=== PATIENT | female | born 1970 | race Caucasian/White ===

== ENCOUNTER 2016-12-04 06:59 | Inpatient (IN) | payer BC ==
[~2016-12-04 06:59] MED LIST: Lactated Ringers 1,000 ML IV SCH; Lidocaine 1%/Sod Bicarbonate in NS 8.4% 1 ML Syringe PRN; Sodium Chloride 0.9% 10 ML Syringe FLUSH PRN
[2016-12-04] MEDS ORDERED: HYDROmorphone 1 MG/ML Syringe ONE ×3 (07:39→11:11)
[2016-12-04] MEDS ORDERED: Dexamethasone 4 MG/ML 5 ML MDV ONE (07:39)
[2016-12-04] MEDS ORDERED: Midazolam 1 MG/ML 2 ML SDV ONE (07:39)
[2016-12-04] MEDS ORDERED: Propofol 200 MG/20 ML SDV ONE (07:39)
[2016-12-04] MEDS ORDERED: Lidocaine 1% 4 ML ONE (07:39)
[2016-12-04] MEDS ORDERED: Rocuronium 50 MG/5 ML Vial ONE (07:39)
[2016-12-04] MEDS ORDERED: Phenylephrine 1% 10 MG/ML SDV ONE (07:39)
[2016-12-04] MEDS ORDERED: ePHEDrine 50 MG/ML SDV ONE (07:39)
[2016-12-04] MEDS ORDERED: fentaNYL 250 MCG/5 ML SDV ONE (07:40)
[2016-12-04] MEDS ORDERED: ceFAZolin 1 GM Vial ONE ×3 (07:49→11:51)
--- NOTE | 2016-12-04 07:51 | PCM.PREANE ---
Preanesthetic Assessment - Procedure Proposed Procedure: Left Total Hip Arthroplasty - Anesthesia/Transfusion/Family Hx Anesthesia History: Prior Anesthesia Without Reaction Family History of Anesthesia Reaction: No Transfusion History: No Prior Transfusion(s) Intubation History: Unknown - Review of Systems General: No Symptoms Pulmonary: No Symptoms Cardiovascular: No Symptoms Gastrointestinal: No Symptoms Neurological: Numbness, Pre-Existing Deficit, Tingling, Difficulty Walking, Gait Disturbance, Other Other: Reports: Easy Bruising, Depression, Anxiety - Physical Assessment NPO Status Date: 12/03/16 NPO Status Time: 20:45 Pulse: 63 O2 Sat by Pulse Oximetry: 96 Respiratory Rate: 20 Blood Pressure: 144/92 Temperature: 37.3 C Height: 1.6 m Weight: 86.636 kg ASA Class: 2 Mental Status: Alert & Oriented x3 Airway Class: Mallampati = 1 Dentition: Reports: Dentures, Partial (Upper Dentures and Lower Partial) Thyro-Mental Finger Breadths: 3 Mouth Opening Finger Breadths: 3 ROM/Head Extension: Full Lungs: Clear to Auscultation, Normal Respiratory Effort Cardiovascular: Regular Rate, Regular Rhythm - Lab Values: Laboratory Last Values MRSA (PCR) Negative 11/24/16 11:18 - Allergies Allergies/Adverse Reactions: Allergies Allergy/AdvReac Type Severity Reaction Status Date / Time adhesive tape Allergy Rash Verified 12/01/16 13:12 metoclopramide [From Reglan] Allergy Cannot Verified 12/01/16 13:12 Remember - Acknowledgements Anesthesia Type Planned: General Anesthesia Pt an Appropriate Candidate for the Planned Anesthesia: Yes Alternatives and Risks of Anesthesia Discussed w Pt/Guardian: Yes Pt/Guardian Understands and Agrees with Anesthesia Plan: Yes PreAnesthesia Questionnaire HEENT History: Reports: Impaired Vision, Sinusitis Other HEENT History: lower partial, full upper denture, submandibular gland swelling, wears contacts Cardiovascular History: Reports: Angina, Heart Failure, Hypertension, Other ( See Below) Other Cardiovascular History: tachycardia Respiratory History: Reports: Sleep Apnea Gastrointestinal History: Reports: GERD, Hemorrhoids, Irritable Bowel Syndrome, Other (See Below) Other Gastrointestinal History: RUQ pain, bloody diarrhea, hematochezia Genitourinary History: Reports: Other (See Below) Other Genitourinary History: dyspareunia, pelvic pain, neurogenic bladder, 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 Other OB/BYN History: L breast mass, endometrosis Musculoskeletal History: Reports: Back Pain, Chronic, Osteoarthritis, Other ( See Below) Other Musculoskeletal History: joint pain, lumbar radiculopathy, myofasical muscle pain, monoarticular arthritis, carpal tunnel syndrome Neurological History: Reports: Other (See Below) Other Neuro History: cauda equina with surgical intervention in 2016, paresthesia, paraspinal hematoma requiring evacuation post cauda equina surgery , 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 Psychiatric History: Reports: Anxiety, Depression, Other (See Below) Other Psychiatric History: chronic pain syndrome Endocrine/Metabolic History: Reports: None Hematologic History: Reports: Other (See Below) Other Hematologic History: hematoma evacuation Immunologic History: Reports: Immunosuppression Oncologic (Cancer) History: Reports: Malignant Melanoma Dermatologic History: Reports: Other (See Below) Other Dermatologic History: melanoma, gluteal abcess, L axillary mass, pilonidal sinus cyst with abcess, dysplatic nevi - Infectious Disease History Infectious Disease History: Reports: Chicken Pox - Past Surgical History Head Surgeries/Procedures: Reports: None HEENT Surgical History: Reports: None Cardiovascular Surgical History: Reports: None GI Surgical History: Reports: None Female Surgical History: Reports: None, Hysterectomy, Oophorectomy Neurological Surgical History: Reports: Other (See Below) Other Neurological Surgeries/Procedures: see above Musculoskeletal Surgical History: Reports: Carpal Tunnel, Other (See Below) Other Musculoskeletal Surgeries/Procedures:: right total hip replacement, bilateral carpal tunnel release, laminectomy and bilateral foramenectomy L4L5 Dermatological Surgical History: Reports: Skin Biopsy - SUBSTANCE USE Smoking Status *Q: Former Smoker Tobacco Use Within Last Twelve Months: No Second Hand Smoke Exposure: No Recreational Drug Use History: No - HOME MEDS Home Medications: Home Meds Gabapentin [Neurontin] 1 cap PO DAILY 04/14/16 [History] Lisinopril/Hydrochlorothiazide [Zestoretic 10-12.5 mg Tablet] 1 tab PO DAILY 12/19 [History] LORazepam [LORazepam] 0.5 mg PO BID PRN 12/01/16 [History] Linaclotide [Linzess] 290 mcg PO DAILY 12/01/16 [History] Pantoprazole Sodium [Pantoprazole Sodium] 40 mg PO BID 12/01/16 [History] oxyCODONE HCl [oxyCODONE] 15 mg PO QID PRN 12/01/16 [History] - CURRENT (IN HOUSE) MEDS Current Meds: Current Medications Aspirin (Ecotrin) 325 mg PO BID [facility] Bisacodyl (Dulcolax) 5 mg PO DAILY PRN PRN Reason: Constipation Morphine Sulfate 8 mg/Epinephrine HCl 0.3 mg/Cefuroxime Sodium 750 mg/Ketorolac Tromethamine 30 mg/Sodium Chloride 27.9 ml 0 mg .XX ONETIME ONE Stop: 12/04/16 09:01 Docusate Sodium (Colace) 100 mg PO BID [facility] Famotidine (Pepcid) 20 mg PO Q12H [facility] Lactated Ringer's (Ringers, Lactated) 1,000 mls @ 125 mls/hr IV ASDIRECTED [facility]ICHI Stop: 12/04/16 23:00 Cefazolin Sodium/Dextrose 2 gm (/ Premix) 50 mls @ 100 mls/hr IV Q8H [facility] Stop: 12/04/16 23:44 Lidocaine/Sodium Bicarbonate (Buffered Lidocaine 1% In Ns 8.4%) 0.25 ml .XX ONETIME PRN PRN Reason: Prior to IV Start Stop: 12/04/16 18:00 Magnesium Hydroxide (Milk Of Magnesia) 30 ml PO BID PRN PRN Reason: Constipation Morphine Sulfate (Morphine) 2 mg IVPUSH Q2H PRN PRN Reason: Breakthrough Pain Multivitamins (Thera) 1 each PO WITHBREAKFAST [facility] Naloxone HCl (Narcan) 0.1 mg IVPUSH Q5M PRN PRN Reason: Oversedation Ondansetron HCl (Zofran) 4 mg IVPUSH Q6H PRN PRN Reason: Nausea/Vomiting Oxycodone/Acetaminophen (Percocet 325-5 Mg) 1 - 2 tab PO Q4H PRN PRN Reason: Pain Senna (Senna) 8.6 mg PO BID PRN PRN Reason: Constipation Sodium Chloride (Saline Flush) 10 ml FLUSH ASDIRECTED PRN PRN Reason: Keep Vein Open Stop: 12/04/16 18:00 Discontinued Medications Bupivacaine HCl (Marcaine 0.25%) Confirm Administered Dose 60 ml .ROUTE .STK- MED ONE Stop: 12/04/16 07:21 Dexamethasone (Dexamethasone) Confirm Administered Dose 20 mg .ROUTE .STK-MED ONE Stop: 12/04/16 07:40 Ephedrine Sulfate (Ephedrine Sulfate) Confirm Administered Dose 50 mg .ROUTE .STK-MED ONE Stop: 12/04/16 07:40 Fentanyl (Sublimaze) Confirm Administered Dose 250 mcg .ROUTE .STK-MED ONE Stop: 12/04/16 07:41 Hydromorphone HCl (Dilaudid) Confirm Administered Dose 2 mg .ROUTE .STK-MED ONE Stop: 12/04/16 07:40 Lidocaine HCl (Xylocaine-Mpf 1%) Confirm Administered Dose 4 mls @ as directed .ROUTE .STK-MED ONE Stop: 12/04/16 07:40 Midazolam HCl (Versed 1 Mg/Ml) Confirm Administered Dose 4 mg .ROUTE .STK-MED ONE Stop: 12/04/16 07:40 Phenylephrine HCl (Sonny-Synephrine) Confirm Administered Dose 10 mg .ROUTE .STK- MED ONE Stop: 12/04/16 07:40 Propofol (Diprivan 20 Ml) Confirm Administered Dose 600 mg .ROUTE .STK-MED ONE Stop: 12/04/16 07:40 Rocuronium Stover (Zemuron) Confirm Administered Dose 50 mg .ROUTE .STK-MED ONE Stop: 12/04/16 07:40 Vancomycin HCl (Vancomycin) Confirm Administered Dose 1 gm .ROUTE .STK-MED ONE Stop: 12/04/16 07:20
[2016-12-04] MEDS ORDERED: Sennosides 8.6 MG Tab PO PRN (09:00)
[2016-12-04] MEDS ORDERED: Magnesium Hydroxide 400 MG/5 ML Susp 30 ML Cup PO PRN (09:00)
[2016-12-04] MEDS ORDERED: Naloxone 0.4 MG/ML SDV IVPUSH PRN (09:00)
[2016-12-04] MEDS ORDERED: Morphine 8 MG, EPINEPHrine 0.3 MG, Cefuroxime 750 MG, Ketorolac 30 MG, Sodium Chloride ... ONE ×5 (09:00)
[2016-12-04] MEDS ORDERED: Morphine 2 MG/ML Syringe IVPUSH PRN (09:00)
[2016-12-04] MEDS ORDERED: Ondansetron 4 MG/2 ML SDV IVPUSH PRN (09:00)
[2016-12-04] MEDS ORDERED: Bisacodyl 5 MG Tab PO PRN (09:00)
[2016-12-04] MEDS ORDERED: Ketamine 500 mg/10 ML MDV ONE (09:26)
[2016-12-04] MEDS: Bupivacaine 0.25% 30 ML SDV ONE ×2 (09:30→10:20)
[2016-12-04] MEDS: Iodine/Sodium Iodide 2% Tincture 30 ML Bottle ONE ×2 (09:31→10:16)
[2016-12-04] MEDS: Vancomycin 1 GM SDV ONE ×2 (09:33→10:22)
[2016-12-04] MEDS ORDERED: Ketorolac 30 MG/ML SDV ONE (09:49)
[2016-12-04] MEDS ORDERED: diphenhydrAMINE 50 MG/ML SDV ONE (09:49)
[2016-12-04] MEDS ORDERED: Lactated Ringers 1,000 ML ONE (10:11)
[2016-12-04] MEDS ORDERED: HYDROmorphone 0.5 MG/0.5 ML Syringe IVPUSH PRN (10:13)
[2016-12-04] MEDS ORDERED: Midazolam 1 MG/ML 2 ML SDV IVPUSH PRN (10:13)
[2016-12-04] MEDS ORDERED: Hetastarch in NS 500 ML ONE (10:16)
--- NOTE | 2016-12-04 11:08 | PCM.POSTAN ---
POST ANESTHESIA ASSESSMENT - MENTAL STATUS Mental Status: Alert, Oriented - VITAL SIGNS Pulse Rate: 81 SaO2: 100 Resp Rate: 13 Blood Pressure: 121/87 Temperature: 36.7 C - RESPIRATORY Respiratory Status: Respiratory Rate WNL, Airway Patent, O2 Saturation Stable, Supplemental Oxygen - CARDIOVASCULAR CV Status: Pulse Rate WNL, Blood Pressure Stable - GASTROINTESTINAL GI Status: No Symptoms - PAIN Pain Score: 5 (Chronic Pain with Chronic Narcotic Use. ) - POST OP HYDRATION Hydration Status: Adequate & Stable
[2016-12-04] MEDS ORDERED: fentaNYL 100 MCG/2 ML SDV ONE (11:09)
[2016-12-04] MEDS ORDERED: Meperidine PF 50 MG/ML Syringe ONE (11:14)
[2016-12-04] MEDS ORDERED: Meperidine PF 50 MG/ML Syringe IVPUSH PRN (11:18)
[2016-12-04] MEDS: fentaNYL 100 MCG/2 ML SDV IVPUSH PRN ×2 (11:23→11:37)
[2016-12-04] MEDS ORDERED: Haloperidol Lactate 5 MG/ML SDV IVPUSH ONE (12:00)
--- NOTE | 2016-12-04 12:48 | CR ---
Pelvis and left hip: AP view of the pelvis was obtained as well as lateral view of the left hip. Comparison: Previous pelvis and right hip study of 04/17/16. Bilateral hip prosthesis are seen. Left hip prosthesis is an interval change from prior study. Right hip prosthesis appears stable. Previous lumbar spine surgery is noted which is stable. Bony structures are otherwise unremarkable. Nothing acute is seen. Impression: 1. Recently placed left hip prosthesis. 2. Stable appearing surgery within the lumbar spine as well as stable right hip prosthesis. 3. No acute bony abnormality is identified. Diagnostic code #2
[2016-12-04] MEDS: Acetaminophen/oxyCODONE 325-5 MG Tab PO PRN ×2 (13:57→17:58)
--- NOTE | 2016-12-04 14:23 | PCM.CONS ---
H&P History of Present Illness - General Date of Service: 12/04/16 Admit Problem/Dx: Admission Diagnosis/Problem Admission Diagnosis/Problem Osteoarthritis of hip Source of Information: Patient, Old Records, Provider, RN History Limitations: Reports: No Limitations - History of Present Illness Initial Comments - Free Text/Narative: Shanti is a 46 yo female s/p left CECILIO with Dr. Angel this morning. Hospitalist service is consulted for postoperative medical management. PMH includes impaired vision, angina, heart failure, HTN, HOANG, GERD, IBS, neurogenic bladder , dysfunctional uterine bleeding, chronic back pain, osteoarthritis, lumbar radiculopathy, myofasical muscle pain, monoarticular arthritis, cauda equina with surgical intervention in 2016, paraspinal hematoma requiring evacuation post cauda equina surgery, permanent nerve damage to LF, anxiety, depression, chronic pain, immunosupression, malignant melanoma, prior right total hip replacement, laminectomy and bilateral foramencetomy at L4L5. She is a former smoker. I found her in tears today. She reports she was just trying to stand with physical therapy and the pain became too much. She has chronic back pain and rates that at 5-6/10. This has improved since she has laid down on a heating pad. She reports worsening back pain prior to surgery and states her neurologist wants to see her shorty for follow-up. Her left hip pain is 7-8/10. She reports her pain is under fair control now that she has been able to sit and rest. No nausea. No SOB, CP, palpiataitons. Left Hip Pain Score (Numeric/FACES): 8 Lumbar Spine Pain Score (Numeric/FACES): 6 (Improving with heat pad ) - Related Data Allergies/Adverse Reactions: Allergies Allergy/AdvReac Type Severity Reaction Status Date / Time adhesive tape Allergy Rash Verified 12/04/16 12:42 metoclopramide [From Reglan] Allergy Cannot Verified 12/04/16 12:42 Remember Home Medications: Home Meds Gabapentin [Neurontin] 1 cap PO TID 04/14/16 [History] LORazepam [LORazepam] 0.5 mg PO BID PRN 12/01/16 [History] Linaclotide [Linzess] 290 mcg PO DAILY 12/01/16 [History] Pantoprazole Sodium [Pantoprazole Sodium] 40 mg PO BID 12/01/16 [History] oxyCODONE HCl [oxyCODONE] 15 mg PO QID PRN 12/01/16 [History] Cholecalciferol (Vitamin D3) [Vitamin D] 5,000 units PO DAILY 12/04/16 [History] Lisinopril/Hydrochlorothiazide [Lisinopril-Hctz 20-25 mg Tab] 1 tab PO DAILY 04/21 [History] Past Medical History HEENT History: Reports: Impaired Vision, Sinusitis Other HEENT History: lower partial, full upper denture, submandibular gland swelling, wears contacts Cardiovascular History: Reports: Angina, Heart Failure, Hypertension, Other ( See Below) Other Cardiovascular History: tachycardia Respiratory History: Reports: Sleep Apnea Gastrointestinal History: Reports: GERD, Hemorrhoids, Irritable Bowel Syndrome, Other (See Below) Other Gastrointestinal History: RUQ pain, bloody diarrhea, hematochezia Genitourinary History: Reports: Other (See Below) Other Genitourinary History: dyspareunia, pelvic pain, neurogenic bladder, hematuria [employer]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 Other OB/BYN History: L breast mass, endometrosis Musculoskeletal History: Reports: Back Pain, Chronic, Osteoarthritis, Other ( See Below) Other Musculoskeletal History: joint pain, lumbar radiculopathy, myofasical muscle pain, monoarticular arthritis, carpal tunnel syndrome Neurological History: Reports: Other (See Below) Other Neuro History: cauda equina with surgical intervention in 2016, paresthesia, paraspinal hematoma requiring evacuation post cauda equina surgery , 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 Psychiatric History: Reports: Anxiety, Depression, Other (See Below) Other Psychiatric History: chronic pain syndrome Endocrine/Metabolic History: Reports: None Hematologic History: Reports: Other (See Below) Other Hematologic History: hematoma evacuation Immunologic History: Reports: Immunosuppression Oncologic (Cancer) History: Reports: Malignant Melanoma Dermatologic History: Reports: Other (See Below) Other Dermatologic History: melanoma, gluteal abcess, L axillary mass, pilonidal sinus cyst with abcess, dysplatic nevi - Infectious Disease History Infectious Disease History: Reports: Chicken Pox - Past Surgical History Head Surgeries/Procedures: Reports: None HEENT Surgical History: Reports: None Cardiovascular Surgical History: Reports: None GI Surgical History: Reports: None Female Surgical History: Reports: None, Hysterectomy, Oophorectomy Neurological Surgical History: Reports: Other (See Below) Other Neurological Surgeries/Procedures: see above Musculoskeletal Surgical History: Reports: Carpal Tunnel, Other (See Below) Other Musculoskeletal Surgeries/Procedures:: right total hip replacement, bilateral carpal tunnel release, laminectomy and bilateral foramenectomy L4L5 Dermatological Surgical History: Reports: Skin Biopsy Social & Family History - Family History Cardiac: Reports: Heart Failure, [place] Respiratory: Reports: Other (See Below) Other Respiratory Family Hisory: lung cancer : Reports: Other (See Below) Other Family History: kidney failure OBGYN: Reports: Endometriosis, Oncologic: Reports: Lung, Skin - Tobacco Use Smoking Status *Q: Former Smoker Years of Tobacco use: 30 Packs/Tins Daily: 1 Used Tobacco, but Quit: Yes Month Tobacco Last Used: 05/2015 Second Hand Smoke Exposure: No - Caffeine Use Caffeine Use: Reports: Coffee - Recreational Drug Use Recreational Drug Use: No Drug Use in Last 12 Months: No H&P Review of Systems - Review of Systems: Review Of Systems: See Below General: Reports: No Symptoms HEENT: Reports: No Symptoms Pulmonary: Reports: No Symptoms Cardiovascular: Reports: No Symptoms Gastrointestinal: Reports: No Symptoms Genitourinary: Reports: No Symptoms Musculoskeletal: Reports: Back Pain (lumbar spine), Joint Pain (Left hip) Skin: Reports: No Symptoms Psychiatric: Reports: Depression. Denies: Confusion, Agitation Neurological: Reports: No Symptoms Hematologic/Lymphatic: Reports: No Symptoms Immunologic: Reports: No Symptoms Exam - Exam Exam: See Below - Vital Signs Vital Signs: Last Vital Signs Temp 98.2 F 12/04/16 11:59 Pulse 81 12/04/16 11:08 Resp 15 12/04/16 12:30 BP 133/91 H 12/04/16 12:30 Pulse Ox 98 12/04/16 12:58 Weight: 191 lb - Exam Quality Assessment: Supplemental Oxygen, Urinary Catheter, DVT Prophylaxis General: Alert, Oriented, Cooperative HEENT: Conjunctiva Clear, EOMI, Mucosa Moist & [place], Nares Patent, Normal Nasal Septum, Posterior Pharynx Clear, PERRLA Neck: Supple, Trachea Midline. No: JVD Lungs: Clear to Auscultation, Normal Respiratory Effort Cardiovascular: Regular Rate, Regular Rhythm GI/Abdominal Exam: Normal Bowel Sounds, Soft, Non-Tender, No Organomegaly, No Distention, No Abnormal Bruit, No Mass (Female) Exam: Deferred Rectal (Female) Exam: Deferred Back Exam: Normal Inspection, Decreased Range of Motion, Paraspinal Tenderness, Vertebral Tenderness Extremities: Normal Inspection, No Pedal Edema, Normal Capillary Refill, Other ( Left leg bandaged ) Peripheral Pulses: 2+: Radial (L), Radial (R), Posterior Tibial (L), Posterior Tibial (R), Dorsalis Pedis (L), Dorsalis Pedis (R) Skin: Warm, Dry, Intact, Other (Dressing present on left hip. It is dry and intact ) Neurological: Cranial Nerves Intact (Grossly) Neuro Extensive - Mental Status: Alert, Oriented x3, Normal Mood/Affect, Normal Cognition, Memory Intact Neuro Extensive - Motor, Sensory, Reflexes: CN II-XII Intact (Grossly ) Psychiatric: Alert, Depressed. No: Labile Mood, Anxious, Agitated - Patient Data Lab Results Last 24 hrs: Laboratory Results - last 24 hr 12/04/16 12/04/16 Range/Units 07:45 07:45 Hemoglobin A1c 5.30 (4.50-6.20) % Blood Type A POSITIVE Gel Antibody Screen Negative Consult PN Assessment/Plan POD#: 0 Procedures: Procedures CARPAL TUNNEL SURGERY (08/05/15) CT LUMBAR SPINE W/O DYE (08/03/15) MR-STAPH DNA AMP PROBE (08/03/15) THER INJECTION CARP TUNNEL (07/09/15) X-RAY EXAM L-2 SPINE 4/>VWS (08/03/15) X-RAY EXAM OF PELVIS (08/03/15) (1) Status post total hip replacement, left SNOMED Code(s): 350542351037 Code(s): Z96.642 - PRESENCE OF LEFT ARTIFICIAL HIP JOINT Priority: High Current Visit: Yes (2) Osteoarthritis SNOMED Code(s): 047279073 Code(s): M19.90 - UNSPECIFIED OSTEOARTHRITIS, UNSPECIFIED SITE Priority: High Current Visit: No Qualifiers: Osteoarthritis location: hip Osteoarthritis type: primary Laterality: left Qualified Code(s): M16.12 - Unilateral primary osteoarthritis, left hip (3) Chronic low back pain SNOMED Code(s): 832232905 Code(s): M54.5 - LOW BACK PAIN; G89.29 - OTHER CHRONIC PAIN Priority: Medium Current Visit: Yes Qualifiers: Back pain laterality: midline Sciatica laterality: sciatica laterality unspecified Problem List Initiated/Reviewed/Updated: Yes Plan: Assessment: Acute: Post-Operative Care State - Stable - Continue to monitor for hemodynamic instability S/p Left Total Hip Arthroplasty - Stable - DVT and Pain Management as per primary team Hx/o Chronic back pain - Pain Management as per primary team - She has follow-up appointment with her neurologist in upcoming days Chronic: Impaired vision Angina Heart failure HTN HOANG GERD IBS Neurogneic bladder Chronic back pain Osteoarthritis Lumbar radiculopathy Myofasical muscle pain Monoarticular arthritis Cauda equina with surgical intervention in 2016 Paresthesia Paraspinal hematoma requiring evacuation post cauda equina surgery Permanent nerve damage to L4 Anxiety Depression Chronic pain syndrome Immunosupresion Malignant melanoma Obesity with BMI of 33.8 Plan: She is appears clinically stable at this time Routine AM labs Continue home meds PT/OT consult IS q2 awake Thank you for the opportunity to participate in the management of this patient. Requesting Provider: Dr. Angel Date Consult Requested: 12/04/16 Reason for Consult: Post-operative care Patient History Reviewed: Yes Admission H&P Reviewed: Yes Consult Result/Summary:: She is clinically stable
[2016-12-04] MEDS: ceFAZolin 2 GM in Premix Bag 1 BAG IV SCH (17:11)
[2016-12-04] MEDS ORDERED: FLU Vacc QS 2017-18 (6mos UP)/PF 60 MCG/0.5 ML Syringe IM ONE (18:00)
[2016-12-04] MEDS: Gabapentin 300 MG Cap PO SCH (21:06)
[2016-12-04] MEDS: Famotidine 20 MG Tab PO SCH (21:06)
[2016-12-04] MEDS: Docusate Sodium 100 MG Cap PO SCH (21:06)
[2016-12-05] MEDS: ceFAZolin 2 GM in Premix Bag 1 BAG IV SCH ×2 (01:19→08:32)
[2016-12-05] MEDS: Acetaminophen/oxyCODONE 325-5 MG Tab PO PRN ×3 (01:53→10:29)
[2016-12-05] MEDS ORDERED: Multivitamins,Therapeutic Tab PO SCH (07:00)
[2016-12-05] MEDS ORDERED: LORazepam 0.5 MG Tab PO PRN (08:09)
--- NOTE | 2016-12-05 08:18 | PCM.CONSN ---
- General Info Date of Service: 12/05/16 Admission Dx/Problem (Free Text): Admission Diagnosis/Problem Admission Diagnosis/Problem Osteoarthritis of hip POD #[address] Angel Pain somewhat controlled- improved from yesterday, no n/v. Working with PT/OT- doing well; continues to have numbness to left foot but is improving and has sensation there this morning. Plans for DC home today. Functional Status: Reports: Pain Controlled, Tolerating Diet, Ambulating, Urinating, Incentive Spirometry. Denies: New Symptoms - Review of Systems General: Reports: No Symptoms HEENT: Reports: No Symptoms Pulmonary: Reports: No Symptoms Cardiovascular: Reports: No Symptoms Gastrointestinal: Reports: No Symptoms Genitourinary: Reports: No Symptoms Musculoskeletal: Reports: Back Pain (chronic), Leg Pain Skin: Reports: No Symptoms Neurological: Reports: Numbness (lt lower leg/foot), Paresthesia (left lower leg /foot) Psychiatric: Reports: No Symptoms - Patient Data Vitals - Most Recent: Last Vital Signs Temp 98.1 F 12/05/16 02:41 Pulse 66 12/05/16 02:41 Resp 20 12/05/16 02:41 BP 118/74 12/05/16 02:41 Pulse Ox 97 12/05/16 02:41 Weight - Most Recent: 195 lb I&O - Last 24 Hours: Intake & Output 12/04/16 12/05/16 12/05/16 22:59 06:59 14:59 Intake Total 200 650 Output Total 400 700 Balance -200 -50 Lab Results Last 24 Hours: Laboratory Results - last 24 hr 12/04/16 12/04/16 12/05/16 Range/Units 07:45 07:45 05:45 WBC 10.38 H (3.98-10.04) K/mm3 RBC 3.38 L (3.98-5.22) M/mm3 Hgb 10.8 L (11.2-15.7) gm/L Hct 32.8 L (34.1-44.9) % MCV 97.0 H (79.4-94.8) fl MCH 32.0 (25.6-32.2) pg MCHC 32.9 (32.2-35.5) g/dl RDW Std Deviation 44.1 (36.4-46.3) fL Plt Count 179 L (182-369) K/mm3 MPV 10.7 (9.4-12.3) fl Neut % (Auto) 70.5 (34.0-71.1) % Lymph % (Auto) 17.6 L (19.3-51.7) % [place] % (Auto) 11.3 (4.7-12.5) % Eos % (Auto) 0.1 L (0.7-5.8) Baso % (Auto) 0.2 (0.1-1.2) % Neut # (Auto) 7.32 H (1.56-6.13) K/mm3 Lymph # (Auto) 1.83 (1.18-3.74) K/mm3 [place] # (Auto) 1.17 H (0.24-0.36) K/mm3 Eos # (Auto) 0.01 L (0.04-0.36) K/mm3 Baso # (Auto) 0.02 (0.01-0.08) K/mm3 Sodium (136-145) mEq/L Potassium (3.5-5.1) mEq/L Chloride (98-107) mEq/L Carbon Dioxide (21-32) mEq/L Anion Gap (5-15) BUN (7-18) mg/dL Creatinine (0.55-1.02) mg/dL Est Cr Clr Drug Dosing mL/min Estimated GFR (MDRD) (>60) mL/min BUN/Creatinine Ratio (14-18) Glucose (74-106) mg/dL Hemoglobin A1c 5.30 (4.50-6.20) % Calcium (8.5-10.1) mg/dL Total Bilirubin (0.2-1.0) mg/dL AST (15-37) U/L ALT (14-59) U/L Alkaline Phosphatase (46-116) U/L Total Protein (6.4-8.2) g/dl Albumin (3.4-5.0) g/dl Globulin gm/dL Albumin/Globulin Ratio (1-2) Blood Type A POSITIVE Gel Antibody Screen Negative 12/05/16 Range/Units 05:45 WBC (3.98-10.04) K/mm3 RBC (3.98-5.22) M/mm3 Hgb (11.2-15.7) gm/L Hct (34.1-44.9) % MCV (79.4-94.8) fl MCH (25.6-32.2) pg MCHC (32.2-35.5) g/dl RDW Std Deviation (36.4-46.3) fL Plt Count (182-369) K/mm3 MPV (9.4-12.3) fl Neut % (Auto) (34.0-71.1) % Lymph % (Auto) (19.3-51.7) % [place] % (Auto) (4.7-12.5) % Eos % (Auto) (0.7-5.8) Baso % (Auto) (0.1-1.2) % Neut # (Auto) (1.56-6.13) K/mm3 Lymph # (Auto) (1.18-3.74) K/mm3 [place] # (Auto) (0.24-0.36) K/mm3 Eos # (Auto) (0.04-0.36) K/mm3 Baso # (Auto) (0.01-0.08) K/mm3 Sodium 139 (136-145) mEq/L Potassium 3.6 (3.5-5.1) mEq/L Chloride 105 (98-107) mEq/L Carbon Dioxide 25 (21-32) mEq/L Anion Gap 12.6 (5-15) BUN 13 (7-18) mg/dL Creatinine 0.6 (0.55-1.02) mg/dL Est Cr Clr Drug Dosing 96.92 mL/min Estimated GFR (MDRD) > 60 (>60) mL/min BUN/Creatinine Ratio 21.7 H (14-18) Glucose 85 (74-106) mg/dL Hemoglobin A1c (4.50-6.20) % Calcium 8.5 (8.5-10.1) mg/dL Total Bilirubin 0.4 (0.2-1.0) mg/dL AST 38 H (15-37) U/L ALT 22 (14-59) U/L Alkaline Phosphatase 41 L (46-116) U/L Total Protein 6.0 L (6.4-8.2) g/dl Albumin 2.9 L (3.4-5.0) g/dl Globulin 3.1 gm/dL Albumin/Globulin Ratio 0.9 L (1-2) Blood Type Gel Antibody Screen Med Orders - Current: Current Medications Aspirin (Ecotrin) 325 mg PO BID [facility] Bisacodyl (Dulcolax) 5 mg PO DAILY PRN PRN Reason: Constipation Docusate Sodium (Colace) 100 mg PO BID [facility] Last Admin: 12/04/16 21:06 Dose: 100 mg Famotidine (Pepcid) 20 mg PO BID [facility] Last Admin: 12/04/16 21:06 Dose: 20 mg Gabapentin (Neurontin) 300 mg PO TID [facility] Last Admin: 12/04/16 21:06 Dose: 300 mg Hydrochlorothiazide (Hydrochlorothiazide) 25 mg PO DAILY [facility] Cefazolin Sodium/Dextrose 2 gm (/ Premix) 50 mls @ 100 mls/hr IV Q8H [facility] Stop: 12/05/16 09:29 Last Admin: 12/05/16 01:19 Dose: 100 mls/hr Lisinopril (Prinivil) 20 mg PO DAILY [facility] Lorazepam (Ativan) 0.5 mg PO BID PRN PRN Reason: Anxiety Magnesium Hydroxide (Milk Of Magnesia) 30 ml PO BID PRN PRN Reason: Constipation Morphine Sulfate (Morphine) 2 mg IVPUSH Q2H PRN PRN Reason: Breakthrough Pain Last Admin: 12/04/16 21:10 Dose: 2 mg Multivitamins (Thera) 1 each PO WITHBREAKFAST [facility] Last Admin: 12/05/16 06:33 Dose: 1 each Naloxone HCl (Narcan) 0.1 mg IVPUSH Q5M PRN PRN Reason: Oversedation Non-Formulary Medication (Cholecalciferol (Vitamin D3) [Vitamin D]) 5,000 units PO DAILY [facility] Ondansetron HCl (Zofran) 4 mg IVPUSH Q6H PRN PRN Reason: Nausea/Vomiting Oxycodone/Acetaminophen (Percocet 325-5 Mg) 1 - 2 tab PO Q4H PRN PRN Reason: Pain Last Admin: 12/05/16 06:33 Dose: 2 tab Linaclotide [Linzess (] 290 Mcg) 0 each PO DAILY [facility] Senna (Senna) 8.6 mg PO BID PRN PRN Reason: Constipation Discontinued Medications Bupivacaine HCl (Marcaine 0.25%) Confirm Administered Dose 60 ml .ROUTE .STK- MED ONE Stop: 12/04/16 07:21 Last Admin: 12/04/16 10:20 Dose: 30 ml Cefazolin Sodium (Ancef) Confirm Administered Dose 1 gm .ROUTE .STK-MED ONE Stop: 12/04/16 07:50 Cefazolin Sodium (Ancef) Confirm Administered Dose 1 gm .ROUTE .STK-MED ONE Stop: 12/04/16 08:08 Cefazolin Sodium (Ancef) Confirm Administered Dose 2 gm .ROUTE .STK-MED ONE Stop: 12/04/16 11:52 Morphine Sulfate 8 mg/Epinephrine HCl 0.3 mg/Cefuroxime Sodium 750 mg/Ketorolac Tromethamine 30 mg/Sodium Chloride 27.9 ml 0 mg .XX ONETIME ONE Stop: 12/04/16 09:01 Last Admin: 12/04/16 14:10 Dose: Not Given Dexamethasone (Dexamethasone) Confirm Administered Dose 20 mg .ROUTE .STK-MED ONE Stop: 12/04/16 07:40 Diphenhydramine HCl (Benadryl) Confirm Administered Dose 50 mg .ROUTE .STK-MED ONE Stop: 12/04/16 09:50 Ephedrine Sulfate (Ephedrine Sulfate) Confirm Administered Dose 50 mg .ROUTE .STK-MED ONE Stop: 12/04/16 07:40 Fentanyl (Sublimaze) Confirm Administered Dose 250 mcg .ROUTE .STK-MED ONE Stop: 12/04/16 07:41 Fentanyl (Sublimaze) 100 mcg IVPUSH Q5M PRN PRN Reason: Pain Stop: 12/04/16 12:00 Last Admin: 12/04/16 11:37 Dose: 100 mcg Fentanyl (Sublimaze) Confirm Administered Dose 100 mcg .ROUTE .STK-MED ONE Stop: 12/04/16 11:10 Haloperidol Lactate (Haldol) 1 mg IVPUSH ONETIME ONE Stop: 12/04/16 12:01 Last Admin: 12/04/16 14:10 Dose: Not Given Hydromorphone HCl (Dilaudid) Confirm Administered Dose 2 mg .ROUTE .STK-MED ONE Stop: 12/04/16 07:40 Hydromorphone HCl (Dilaudid) 0.5 mg IVPUSH Q15M PRN PRN Reason: severe pain Stop: 12/04/16 12:00 Last Admin: 12/04/16 11:50 Dose: 0.5 mg Hydromorphone HCl (Dilaudid) Confirm Administered Dose 1 mg .ROUTE .STK-MED ONE Stop: 12/04/16 10:56 Hydromorphone HCl (Dilaudid) Confirm Administered Dose 1 mg .ROUTE .STK-MED ONE Stop: 12/04/16 11:12 Lactated Ringer's (Ringers, Lactated) 1,000 mls @ 125 mls/hr IV ASDIRECTED [facility] Stop: 12/04/16 23:00 Last Admin: 12/04/16 07:35 Dose: 125 mls/hr Lidocaine HCl (Xylocaine-Mpf 1%) Confirm Administered Dose 4 mls @ as directed .ROUTE .[facility] ONE Stop: 12/04/16 07:40 Acetaminophen (Ofirmev) 100 mls @ 400 mls/hr IV NOW ONE Stop: 12/04/16 08:28 Last Admin: 12/04/16 08:41 Dose: 400 mls/hr Lactated Ringer's (Ringers, Lactated) Confirm Administered Dose 1,000 mls @ as directed .ROUTE .ST-MED ONE Stop: 12/04/16 10:12 Hetastarch/Sodium Chloride (Hetastarch 6% In Normal Saline) Confirm Administered Dose 500 mls @ as directed .ROUTE .ST-MED ONE Stop: 12/04/16 10:17 Iodine (Iodine 2% Mild Tincture) Confirm Administered Dose 30 ml .ROUTE .ST- MED ONE Stop: 12/04/16 07:51 Last Admin: 12/04/16 10:16 Dose: 18 ml Ketamine HCl (Ketalar) Confirm Administered Dose 500 mg .ROUTE .STK-MED ONE Stop: 12/04/16 09:27 Ketorolac Tromethamine (Toradol) Confirm Administered Dose 30 mg .ROUTE .STK- MED ONE Stop: 12/04/16 09:50 Lidocaine/Sodium Bicarbonate (Buffered Lidocaine 1% In Ns 8.4%) 0.25 ml .XX ONETIME PRN PRN Reason: Prior to IV Start Stop: 12/04/16 18:00 Last Admin: 12/04/16 07:34 Dose: 0.25 ml Meperidine HCl (Demerol) 25 mg IVPUSH ONETIME PRN PRN Reason: Shivering Stop: 12/04/16 11:19 Last Admin: 12/04/16 11:20 Dose: 25 mg Meperidine HCl (Demerol) Confirm Administered Dose 50 mg .ROUTE .STK-MED ONE Stop: 12/04/16 11:15 Last Admin: 12/04/16 14:10 Dose: Not Given Midazolam HCl (Versed 1 Mg/Ml) Confirm Administered Dose 4 mg .ROUTE .STK-MED ONE Stop: 12/04/16 07:40 Midazolam HCl (Versed 1 Mg/Ml) 2 mg IVPUSH ONETIME PRN PRN Reason: Sedation Stop: 12/04/16 12:00 Phenylephrine HCl (Sonny-Synephrine) Confirm Administered Dose 10 mg .ROUTE .STK- MED ONE Stop: 12/04/16 07:40 Propofol (Diprivan 20 Ml) Confirm Administered Dose 600 mg .ROUTE .STK-MED ONE Stop: 12/04/16 07:40 Rocuronium [place] (Zemuron) Confirm Administered Dose 50 mg .ROUTE .STK-MED ONE Stop: 12/04/16 07:40 Sodium Chloride (Saline Flush) 10 ml FLUSH ASDIRECTED PRN PRN Reason: Keep Vein Open Stop: 12/04/16 18:00 Tranexamic Acid (Cyklokapron) Confirm Administered Dose 1,000 mg .ROUTE .STK- MED ONE Stop: 12/04/16 07:45 Last Admin: 12/04/16 10:23 Dose: 1,000 mg Vancomycin HCl (Vancomycin) Confirm Administered Dose 1 gm .ROUTE .STK-MED ONE Stop: 12/04/16 07:20 Last Admin: 12/04/16 10:22 Dose: 1 gm - Exam Quality Assessment: DVT Prophylaxis General: Alert, Oriented, Cooperative, No Acute Distress HEENT: Pupils Equal, Pupils Reactive, EOMI, Mucous Membr. Moist/[place] Neck: Supple Lungs: Clear to Auscultation, Normal Respiratory Effort Cardiovascular: Regular Rate, Regular Rhythm GI/Abdominal Exam: Normal Bowel Sounds, Soft, Non-Tender (Female) Exam: Deferred Extremities: Other (Teds/SCD's) Peripheral Pulses: 2+: Dorsalis Pedis (L), Dorsalis Pedis (R) Skin: Warm, Dry Wound/Incisions: Dressing Dry and Intact Neurological: No New Focal Deficit Psy/Mental Status: Alert, Normal Affect, Normal Mood Consult PN Assessment/Plan POD#: 1 Procedures: Procedures CARPAL TUNNEL SURGERY (08/05/15) CT LUMBAR SPINE W/O DYE (08/03/15) MR-STAPH DNA AMP PROBE (08/03/15) THER INJECTION CARP TUNNEL (07/09/15) X-RAY EXAM L-2 SPINE 4/>VWS (08/03/15) X-RAY EXAM OF PELVIS (08/03/15) (1) Status post total hip replacement, left SNOMED Code(s): 452429730204 Code(s): Z96.642 - PRESENCE OF LEFT ARTIFICIAL HIP JOINT Priority: High Current Visit: Yes (2) Osteoarthritis SNOMED Code(s): 659669590 Code(s): M19.90 - UNSPECIFIED OSTEOARTHRITIS, UNSPECIFIED SITE Priority: High Current Visit: Yes Qualifiers: Osteoarthritis location: hip Osteoarthritis type: primary Laterality: left Qualified Code(s): M16.12 - Unilateral primary osteoarthritis, left hip (3) Chronic low back pain SNOMED Code(s): 596280724 Code(s): M54.5 - LOW BACK PAIN; G89.29 - OTHER CHRONIC PAIN Priority: Medium Current Visit: Yes Qualifiers: Back pain laterality: midline Sciatica laterality: sciatica laterality unspecified (4) Paresthesia SNOMED Code(s): 39767668 Code(s): R20.2 - PARESTHESIA OF SKIN Priority: Medium Current Visit: Yes Problem List Initiated/Reviewed/Updated: Yes My Orders Last 24 Hours: My Active Orders 12/05/16 08:09 LORazepam [Ativan] 0.5 mg PO BID PRN 12/05/16 09:00 Cholecalciferol (Vitamin D3) [Vitamin D] 5,000 units PO DAILY Plan: I/P: S/P Lt CECILIO- POD #1, Dr. 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 Immunosupresion Malignant melanoma Obesity with BMI of 33.8 Other: GI prophylax CM/SW for assist with DC planning -Medically stable for DC today; labs and VSS. Pending therapies recommendations. Patient is Full Code status.
[2016-12-05] MEDS: Famotidine 20 MG Tab PO SCH (08:31)
[2016-12-05] MEDS: Gabapentin 300 MG Cap PO SCH ×2 (08:31→15:41)
[2016-12-05] MEDS: Docusate Sodium 100 MG Cap PO SCH (08:31)
[2016-12-05] MEDS ORDERED: Lisinopril 20 MG Tab PO SCH (09:00)
[2016-12-05] MEDS ORDERED: Cholecalciferol (Vitamin D3) 1,000 Unit Tab PO SCH (09:00)
[2016-12-05] MEDS ORDERED: Aspirin 325 MG Tab.EC PO SCH (09:00)
[2016-12-05] MEDS ORDERED: Hydrochlorothiazide 25 MG Tab PO SCH (09:00)
--- NOTE | 2016-12-05 09:45 | PCM48HPAN ---
Post Anesthesia Note - EVALUATION WITHIN 48HRS OF ANESTHETIC Vital Signs in Normal Range: Yes Patient Participated in Evaluation: Yes Respiratory Function Stable: Yes Airway Patent: Yes Cardiovascular Function Stable: Yes Hydration Status Stable: Yes Pain Control Satisfactory: Yes Nausea and Vomiting Control Satisfactory: Yes Mental Status Recovered: Yes
[2016-12-05 13:56] VITALS: BP 116/80
--- NOTE | 2016-12-06 07:47 | PCM.SURGPN ---
- General Info Date of Service: 12/05/16 POD#: 1 Functional Status: Reports: Pain Controlled, Tolerating Diet, Ambulating, Urinating, Incentive Spirometry - Review of Systems General: Denies: Fever, Chills Musculoskeletal: Reports: Other (The pt reports left ankle weakness. She states she feels prepared for discharge to home.) - Patient Data Vitals - Most Recent: Last Vital Signs Temp 97.9 F 12/05/16 13:14 Pulse 80 12/05/16 13:38 Resp 16 12/05/16 13:38 BP 116/80 12/05/16 13:38 Pulse Ox 95 12/05/16 13:38 Weight - Most Recent: 195 lb I&O - Last 24 Hours: Intake & Output 12/05/16 12/06/16 12/06/16 22:59 06:59 14:59 Intake Total 1040 Output Total 1400 Balance -360 Lab Results Last 24 Hrs: Laboratory Results - last 24 hr 12/05/16 Range/Units 11:11 POC Glucose 104 (70-105) mg/dL Med Orders - Current: Current Medications Discontinued Medications Aspirin (Ecotrin) 325 mg PO BID [facility] Last Admin: 12/05/16 08:31 Dose: 325 mg Bisacodyl (Dulcolax) 5 mg PO DAILY PRN PRN Reason: Constipation Bupivacaine HCl (Marcaine 0.25%) Confirm Administered Dose 60 ml .ROUTE .STK- MED ONE Stop: 12/04/16 07:21 Last Admin: 12/04/16 10:20 Dose: 30 ml Cefazolin Sodium (Ancef) Confirm Administered Dose 1 gm .ROUTE .STK-MED ONE Stop: 12/04/16 07:50 Cefazolin Sodium (Ancef) Confirm Administered Dose 1 gm .ROUTE .STK-MED ONE Stop: 12/04/16 08:08 Cefazolin Sodium (Ancef) Confirm Administered Dose 2 gm .ROUTE .STK-MED ONE Stop: 12/04/16 11:52 Cholecalciferol (Vitamin D3) 5,000 units PO DAILY [facility] Last Admin: 12/05/16 08:31 Dose: 5,000 units Morphine Sulfate 8 mg/Epinephrine HCl 0.3 mg/Cefuroxime Sodium 750 mg/Ketorolac Tromethamine 30 mg/Sodium Chloride 27.9 ml 0 mg .XX ONETIME ONE Stop: 12/04/16 09:01 Last Admin: 12/04/16 14:10 Dose: Not Given Dexamethasone (Dexamethasone) Confirm Administered Dose 20 mg .ROUTE .STK-MED ONE Stop: 12/04/16 07:40 Diphenhydramine HCl (Benadryl) Confirm Administered Dose 50 mg .ROUTE .STK-MED ONE Stop: 12/04/16 09:50 Docusate Sodium (Colace) 100 mg PO BID [facility] Last Admin: 12/05/16 08:31 Dose: 100 mg Ephedrine Sulfate (Ephedrine Sulfate) Confirm Administered Dose 50 mg .ROUTE .STK-MED ONE Stop: 12/04/16 07:40 Famotidine (Pepcid) 20 mg PO BID [facility] Last Admin: 12/05/16 08:31 Dose: 20 mg Fentanyl (Sublimaze) Confirm Administered Dose 250 mcg .ROUTE .STK-MED ONE Stop: 12/04/16 07:41 Fentanyl (Sublimaze) 100 mcg IVPUSH Q5M PRN PRN Reason: Pain Stop: 12/04/16 12:00 Last Admin: 12/04/16 11:37 Dose: 100 mcg Fentanyl (Sublimaze) Confirm Administered Dose 100 mcg .ROUTE .STK-MED ONE Stop: 12/04/16 11:10 Gabapentin (Neurontin) 300 mg PO TID [facility] Last Admin: 12/05/16 15:41 Dose: Not Given Haloperidol Lactate (Haldol) 1 mg IVPUSH ONETIME ONE Stop: 12/04/16 12:01 Last Admin: 12/04/16 14:10 Dose: Not Given Hydrochlorothiazide (Hydrochlorothiazide) 25 mg PO DAILY [facility] Last Admin: 12/05/16 08:31 Dose: 25 mg Hydromorphone HCl (Dilaudid) Confirm Administered Dose 2 mg .ROUTE .STK-MED ONE Stop: 12/04/16 07:40 Hydromorphone HCl (Dilaudid) 0.5 mg IVPUSH Q15M PRN PRN Reason: severe pain Stop: 12/04/16 12:00 Last Admin: 12/04/16 11:50 Dose: 0.5 mg Hydromorphone HCl (Dilaudid) Confirm Administered Dose 1 mg .ROUTE .STK-MED ONE Stop: 12/04/16 10:56 Hydromorphone HCl (Dilaudid) Confirm Administered Dose 1 mg .ROUTE .STK-MED ONE Stop: 12/04/16 11:12 Lactated Ringer's (Ringers, Lactated) 1,000 mls @ 125 mls/hr IV ASDIRECTED [facility] Stop: 12/04/16 23:00 Last Admin: 12/04/16 07:35 Dose: 125 mls/hr Cefazolin Sodium/Dextrose 2 gm (/ Premix) 50 mls @ 100 mls/hr IV Q8H [facility] Stop: 12/05/16 09:29 Last Admin: 12/05/16 08:32 Dose: 100 mls/hr Lidocaine HCl (Xylocaine-Mpf 1%) Confirm Administered Dose 4 mls @ as directed .ROUTE .ST-MED ONE Stop: 12/04/16 07:40 Acetaminophen (Ofirmev) 100 mls @ 400 mls/hr IV NOW ONE Stop: 12/04/16 08:28 Last Admin: 12/04/16 08:41 Dose: 400 mls/hr Lactated Ringer's (Ringers, Lactated) Confirm Administered Dose 1,000 mls @ as directed .ROUTE .STK-MED ONE Stop: 12/04/16 10:12 Hetastarch/Sodium Chloride (Hetastarch 6% In Normal Saline) Confirm Administered Dose 500 mls @ as directed .ROUTE .STK-MED ONE Stop: 12/04/16 10:17 Iodine (Iodine 2% Mild Tincture) Confirm Administered Dose 30 ml .ROUTE .STK- MED ONE Stop: 12/04/16 07:51 Last Admin: 12/04/16 10:16 Dose: 18 ml Ketamine HCl (Ketalar) Confirm Administered Dose 500 mg .ROUTE .STK-MED ONE Stop: 12/04/16 09:27 Ketorolac Tromethamine (Toradol) Confirm Administered Dose 30 mg .ROUTE .STK- MED ONE Stop: 12/04/16 09:50 Lidocaine/Sodium Bicarbonate (Buffered Lidocaine 1% In Ns 8.4%) 0.25 ml .XX ONETIME PRN PRN Reason: Prior to IV Start Stop: 12/04/16 18:00 Last Admin: 12/04/16 07:34 Dose: 0.25 ml Lisinopril (Prinivil) 20 mg PO DAILY [facility] Last Admin: 12/05/16 08:32 Dose: Not Given Lorazepam (Ativan) 0.5 mg PO BID PRN PRN Reason: Anxiety Magnesium Hydroxide (Milk Of Magnesia) 30 ml PO BID PRN PRN Reason: Constipation Meperidine HCl (Demerol) 25 mg IVPUSH ONETIME PRN PRN Reason: Shivering Stop: 12/04/16 11:19 Last Admin: 12/04/16 11:20 Dose: 25 mg Meperidine HCl (Demerol) Confirm Administered Dose 50 mg .ROUTE .STK-MED ONE Stop: 12/04/16 11:15 Last Admin: 12/04/16 14:10 Dose: Not Given Midazolam HCl (Versed 1 Mg/Ml) Confirm Administered Dose 4 mg .ROUTE .STK-MED ONE Stop: 12/04/16 07:40 Midazolam HCl (Versed 1 Mg/Ml) 2 mg IVPUSH ONETIME PRN PRN Reason: Sedation Stop: 12/04/16 12:00 Morphine Sulfate (Morphine) 2 mg IVPUSH Q2H PRN PRN Reason: Breakthrough Pain Last Admin: 12/04/16 21:10 Dose: 2 mg Multivitamins (Thera) 1 each PO WITHBREAKFAST [facility] Last Admin: 12/05/16 06:33 Dose: 1 each Naloxone HCl (Narcan) 0.1 mg IVPUSH Q5M PRN PRN Reason: Oversedation Ondansetron HCl (Zofran) 4 mg IVPUSH Q6H PRN PRN Reason: Nausea/Vomiting Oxycodone/Acetaminophen (Percocet 325-5 Mg) 1 - 2 tab PO Q4H PRN PRN Reason: Pain Last Admin: 12/05/16 10:29 Dose: 2 tab Linaclotide [Linzess (] 290 Mcg) 0 each PO DAILY [facility] Last Admin: 12/05/16 08:32 Dose: Not Given Phenylephrine HCl (Sonny-Synephrine) Confirm Administered Dose 10 mg .ROUTE .STK- MED ONE Stop: 12/04/16 07:40 Propofol (Diprivan 20 Ml) Confirm Administered Dose 600 mg .ROUTE .STK-MED ONE Stop: 12/04/16 07:40 Rocuronium [place] (Zemuron) Confirm Administered Dose 50 mg .ROUTE .STK-MED ONE Stop: 12/04/16 07:40 Senna (Senna) 8.6 mg PO BID PRN PRN Reason: Constipation Sodium Chloride (Saline Flush) 10 ml FLUSH ASDIRECTED PRN PRN Reason: Keep Vein Open Stop: 12/04/16 18:00 Tranexamic Acid (Cyklokapron) Confirm Administered Dose 1,000 mg .ROUTE .STK- MED ONE Stop: 12/04/16 07:45 Last Admin: 12/04/16 10:23 Dose: 1,000 mg Vancomycin HCl (Vancomycin) Confirm Administered Dose 1 gm .ROUTE .STK-MED ONE Stop: 12/04/16 07:20 Last Admin: 12/04/16 10:22 Dose: 1 gm - Exam Wound/Incisions: Dressing Dry and Intact General: Alert, Cooperative, No Acute Distress Lungs: Normal Respiratory Effort Extremities: Other (Camilla's negative for BLE. Left ankle weakness noted with no active ankle DF. The pt was able to sense light touch at dorsum of left foot. Left thigh soft, nontender.) - Problem List Review Problem List Initiated/Reviewed/Updated: Yes - My Orders Last 24 Hours: Active Orders 24 hr Category Date Time Status Ready for Discharge [RC] PER UNIT ROUTINE Care 12/05/16 12:44 Active - Assessment Assessment (Free Text/Narrative):: POD#1 - left CECILIO - Plan Plan (Free Text/Narrative):: 1. Hgb 10.8. 2. DF weakness noted. The pt will obtain AFO to assist with ambulation. Safe ambulation with therapy noted today. 3. Medical management per Hospitalist service. 4. Percocet for pain management. Dr. Angel evaluated the pt today.
--- NOTE | 2016-12-06 07:51 | PCM.DCSUM1 ---
Discharge Summary - Hospital Course Brief History: Shanti is a 46 yo female who underwent left CECILIO with Dr. Angel on 12-04-2016. The procedure was completed under general anesthesia. The pt tolerated the procedure well and was admitted to the Medical-Surgical Unit. The pt's hospital course was uneventful. The pt's hemoglobin on POD#1 was 10.8. The pt participated in P.T. and O.T. and followed CECILIO precautions. Left ankle weakness was noted and an AFO was ordered. The pt's surgical dressing remained clean and dry. On POD#1, 325mg ASA BID was initiated for VTE prophylaxis. SCDs and TEDs were also used. On POD#1, the pt was deemed appropriate for discharge to home with her . - Discharge Data Discharge Date: 12/05/16 Discharge Disposition: Home, Self-Care 01 Condition: Good - Patient Summary/Data Consults: Consultations 12/04/16 07:01 Consult to Physician [CONS] Routine OT Evaluation and Treatment [CONS] Routine 12/04/16 07:05 PT Evaluation and Treatment [CONS] Routine - Patient Instructions Diet: Usual Diet as Tolerated Activity: Apply Ice, As Tolerated, Elevate Extremity, Full Weight Bearing Activity, Other: CECILIO precautions. Driving: Do Not Drive Showering/Bathing: May Shower Wound/Incision Care: Keep Operative Site/Wound Site Clean and Dry, Do NOT Change Dressing Notify Provider of: Fever, Increased Pain, Swelling and Redness, Drainage, Nausea and/or Vomiting Other/Special Instructions: Please get up and moving around every hour while awake. This helps to prevent blood clots. Please use your walker and have help as needed. Take a 325mg ASPIRIN TWICE DAILY. This also helps to prevent blood clots. The aspirin is being used for blood clot prevention and not for pain management, so please do not miss a dose of the medication. Do the exercises you were taught in the Hospital. Schedule for P.T. Follow the total hip precautions. Use the pain medication as needed. The medication may cause drowsiness and constipation. Contact your primary care provider for instructions if you are constipated. You may use a stool softener like docusate sodium or Colace 100mg twice daily and/or a laxative like Miralax daily for constipation. Use the ice machine often. Elevate the limb to decrease swelling. Keep the Mepilex dressing in place until follow-up at the Clinic. Notify the Clinic if the dressing is saturated. Wear the GIRMA hose during the day and you may remove these at night. Eat a diet high in protein as this well help with healing. Schedule an appointment with your primary care provider for 'routine post-op care'. Call the Clinic with questions or concerns - [phone]. - Discharge Plan Prescriptions/Med Rec: Acetaminophen/oxyCODONE [Percocet 325-5 MG] 1 - 2 tab PO Q4H PRN #60 tablet PRN Reason: Pain Aspirin [Ecotrin] 325 mg PO BID #84 tab.ec Cyclobenzaprine [Flexeril] 10 mg PO Q8H PRN #40 tablet PRN Reason: Spasms Docusate Sodium [Colace] 100 mg PO BID #60 cap Home Medications: Home Meds Gabapentin [Neurontin] 1 cap PO TID 04/14/16 [History] LORazepam 0.5 mg PO BID PRN 12/01/16 [History] Linaclotide [Linzess] 290 mcg PO DAILY 12/01/16 [History] Pantoprazole Sodium 40 mg PO BID 12/01/16 [History] Cholecalciferol (Vitamin D3) [Vitamin D] 5,000 units PO DAILY 12/04/16 [History] Lisinopril/Hydrochlorothiazide [Lisinopril-Hctz 20-25 mg Tab] 1 tab PO DAILY 04/21 [History] Acetaminophen/oxyCODONE [Percocet 325-5 MG] 1 - 2 tab PO Q4H PRN #60 tablet 05/19 [Rx] Aspirin [Ecotrin] 325 mg PO BID #84 tab.ec 12/05/16 [Rx] Cyclobenzaprine [Flexeril] 10 mg PO Q8H PRN #40 tablet 12/05/16 [Rx] Docusate Sodium [Colace] 100 mg PO BID #60 cap 12/05/16 [Rx] Patient Handouts: Total Hip Replacement, [id number], Hip Rehabilitation After Surgery, Aspirin, ASA oral tablets, Total Hip Replacement, Care After, [id number] Referrals: Suzanne Garcia PA-C [Physician Senior Health Consultant] - (Please see Suzanne Garcia on Sunday12/12/16 at 1:45 PM and on Sunday12/19/16 at 11:00 AM.) Dashawn Jarvis MD [Primary Care Provider] - - Patient Data Vitals - Most Recent: Last Vital Signs Temp 97.9 F 12/05/16 13:14 Pulse 80 12/05/16 13:38 Resp 16 12/05/16 13:38 BP 116/80 12/05/16 13:38 Pulse Ox 95 12/05/16 13:38 Weight - Most Recent: 195 lb I&O - Last 24 hours: Intake & Output 12/05/16 12/06/16 12/06/16 22:59 06:59 14:59 Intake Total 1040 Output Total 1400 Balance -360 Lab Results - Last 24 hrs: Laboratory Results - last 24 hr 12/05/16 Range/Units 11:11 POC Glucose 104 (70-105) mg/dL Med Orders - Current: Current Medications Discontinued Medications Aspirin (Ecotrin) 325 mg PO BID [facility] Last Admin: 12/05/16 08:31 Dose: 325 mg Bisacodyl (Dulcolax) 5 mg PO DAILY PRN PRN Reason: Constipation Bupivacaine HCl (Marcaine 0.25%) Confirm Administered Dose 60 ml .ROUTE .STK- MED ONE Stop: 12/04/16 07:21 Last Admin: 12/04/16 10:20 Dose: 30 ml Cefazolin Sodium (Ancef) Confirm Administered Dose 1 gm .ROUTE .STK-MED ONE Stop: 12/04/16 07:50 Cefazolin Sodium (Ancef) Confirm Administered Dose 1 gm .ROUTE .STK-MED ONE Stop: 12/04/16 08:08 Cefazolin Sodium (Ancef) Confirm Administered Dose 2 gm .ROUTE .STK-MED ONE Stop: 12/04/16 11:52 Cholecalciferol (Vitamin D3) 5,000 units PO DAILY [facility] Last Admin: 12/05/16 08:31 Dose: 5,000 units Morphine Sulfate 8 mg/Epinephrine HCl 0.3 mg/Cefuroxime Sodium 750 mg/Ketorolac Tromethamine 30 mg/Sodium Chloride 27.9 ml 0 mg .XX ONETIME ONE Stop: 12/04/16 09:01 Last Admin: 12/04/16 14:10 Dose: Not Given Dexamethasone (Dexamethasone) Confirm Administered Dose 20 mg .ROUTE .STK-MED ONE Stop: 12/04/16 07:40 Diphenhydramine HCl (Benadryl) Confirm Administered Dose 50 mg .ROUTE .STK-MED ONE Stop: 12/04/16 09:50 Docusate Sodium (Colace) 100 mg PO BID [facility] Last Admin: 12/05/16 08:31 Dose: 100 mg Ephedrine Sulfate (Ephedrine Sulfate) Confirm Administered Dose 50 mg .ROUTE .STK-MED ONE Stop: 12/04/16 07:40 Famotidine (Pepcid) 20 mg PO BID [facility] Last Admin: 12/05/16 08:31 Dose: 20 mg Fentanyl (Sublimaze) Confirm Administered Dose 250 mcg .ROUTE .STK-MED ONE Stop: 12/04/16 07:41 Fentanyl (Sublimaze) 100 mcg IVPUSH Q5M PRN PRN Reason: Pain Stop: 12/04/16 12:00 Last Admin: 12/04/16 11:37 Dose: 100 mcg Fentanyl (Sublimaze) Confirm Administered Dose 100 mcg .ROUTE .STK-MED ONE Stop: 12/04/16 11:10 Gabapentin (Neurontin) 300 mg PO TID [facility] Last Admin: 12/05/16 15:41 Dose: Not Given Haloperidol Lactate (Haldol) 1 mg IVPUSH ONETIME ONE Stop: 12/04/16 12:01 Last Admin: 12/04/16 14:10 Dose: Not Given Hydrochlorothiazide (Hydrochlorothiazide) 25 mg PO DAILY [facility] Last Admin: 12/05/16 08:31 Dose: 25 mg Hydromorphone HCl (Dilaudid) Confirm Administered Dose 2 mg .ROUTE .STK-MED ONE Stop: 12/04/16 07:40 Hydromorphone HCl (Dilaudid) 0.5 mg IVPUSH Q15M PRN PRN Reason: severe pain Stop: 12/04/16 12:00 Last Admin: 12/04/16 11:50 Dose: 0.5 mg Hydromorphone HCl (Dilaudid) Confirm Administered Dose 1 mg .ROUTE .STK-MED ONE Stop: 12/04/16 10:56 Hydromorphone HCl (Dilaudid) Confirm Administered Dose 1 mg .ROUTE .STK-MED ONE Stop: 12/04/16 11:12 Lactated Ringer's (Ringers, Lactated) 1,000 mls @ 125 mls/hr IV ASDIRECTED [facility] Stop: 12/04/16 23:00 Last Admin: 12/04/16 07:35 Dose: 125 mls/hr Cefazolin Sodium/Dextrose 2 gm (/ Premix) 50 mls @ 100 mls/hr IV Q8H [facility] Stop: 12/05/16 09:29 Last Admin: 12/05/16 08:32 Dose: 100 mls/hr Lidocaine HCl (Xylocaine-Mpf 1%) Confirm Administered Dose 4 mls @ as directed .ROUTE .STK-MED ONE Stop: 12/04/16 07:40 Acetaminophen (Ofirmev) 100 mls @ 400 mls/hr IV NOW ONE Stop: 12/04/16 08:28 Last Admin: 12/04/16 08:41 Dose: 400 mls/hr Lactated Ringer's (Ringers, Lactated) Confirm Administered Dose 1,000 mls @ as directed .ROUTE .STK-MED ONE Stop: 12/04/16 10:12 Hetastarch/Sodium Chloride (Hetastarch 6% In Normal Saline) Confirm Administered Dose 500 mls @ as directed .ROUTE .STK-MED ONE Stop: 12/04/16 10:17 Iodine (Iodine 2% Mild Tincture) Confirm Administered Dose 30 ml .ROUTE .STK- MED ONE Stop: 12/04/16 07:51 Last Admin: 12/04/16 10:16 Dose: 18 ml Ketamine HCl (Ketalar) Confirm Administered Dose 500 mg .ROUTE .STK-MED ONE Stop: 12/04/16 09:27 Ketorolac Tromethamine (Toradol) Confirm Administered Dose 30 mg .ROUTE .STK- MED ONE Stop: 12/04/16 09:50 Lidocaine/Sodium Bicarbonate (Buffered Lidocaine 1% In Ns 8.4%) 0.25 ml .XX ONETIME PRN PRN Reason: Prior to IV Start Stop: 12/04/16 18:00 Last Admin: 12/04/16 07:34 Dose: 0.25 ml Lisinopril (Prinivil) 20 mg PO DAILY [facility] Last Admin: 12/05/16 08:32 Dose: Not Given Lorazepam (Ativan) 0.5 mg PO BID PRN PRN Reason: Anxiety Magnesium Hydroxide (Milk Of Magnesia) 30 ml PO BID PRN PRN Reason: Constipation Meperidine HCl (Demerol) 25 mg IVPUSH ONETIME PRN PRN Reason: Shivering Stop: 12/04/16 11:19 Last Admin: 12/04/16 11:20 Dose: 25 mg Meperidine HCl (Demerol) Confirm Administered Dose 50 mg .ROUTE .STK-MED ONE Stop: 12/04/16 11:15 Last Admin: 12/04/16 14:10 Dose: Not Given Midazolam HCl (Versed 1 Mg/Ml) Confirm Administered Dose 4 mg .ROUTE .STK-MED ONE Stop: 12/04/16 07:40 Midazolam HCl (Versed 1 Mg/Ml) 2 mg IVPUSH ONETIME PRN PRN Reason: Sedation Stop: 12/04/16 12:00 Morphine Sulfate (Morphine) 2 mg IVPUSH Q2H PRN PRN Reason: Breakthrough Pain Last Admin: 12/04/16 21:10 Dose: 2 mg Multivitamins (Thera) 1 each PO WITHBREAKFAST [facility] Last Admin: 12/05/16 06:33 Dose: 1 each Naloxone HCl (Narcan) 0.1 mg IVPUSH Q5M PRN PRN Reason: Oversedation Ondansetron HCl (Zofran) 4 mg IVPUSH Q6H PRN PRN Reason: Nausea/Vomiting Oxycodone/Acetaminophen (Percocet 325-5 Mg) 1 - 2 tab PO Q4H PRN PRN Reason: Pain Last Admin: 12/05/16 10:29 Dose: 2 tab Linaclotide [Linzess (] 290 Mcg) 0 each PO DAILY [facility] Last Admin: 12/05/16 08:32 Dose: Not Given Phenylephrine HCl (Sonny-Synephrine) Confirm Administered Dose 10 mg .ROUTE .STK- MED ONE Stop: 12/04/16 07:40 Propofol (Diprivan 20 Ml) Confirm Administered Dose 600 mg .ROUTE .STK-MED ONE Stop: 12/04/16 07:40 Rocuronium Armour (Zemuron) Confirm Administered Dose 50 mg .ROUTE .STK-MED ONE Stop: 12/04/16 07:40 Senna (Senna) 8.6 mg PO BID PRN PRN Reason: Constipation Sodium Chloride (Saline Flush) 10 ml FLUSH ASDIRECTED PRN PRN Reason: Keep Vein Open Stop: 12/04/16 18:00 Tranexamic Acid (Cyklokapron) Confirm Administered Dose 1,000 mg .ROUTE .STK- MED ONE Stop: 12/04/16 07:45 Last Admin: 12/04/16 10:23 Dose: 1,000 mg Vancomycin HCl (Vancomycin) Confirm Administered Dose 1 gm .ROUTE .STK-MED ONE Stop: 12/04/16 07:20 Last Admin: 12/04/16 10:22 Dose: 1 gm *Q Meaningful Use (DIS) - VTE *Q VTE Criteria *Q: - Stroke *Q Stroke Criteria *Q: - AMI *Q AMI Criteria *Q:
--- NOTE | 2016-12-08 09:43 | PCM.OPNOTE ---
- General Post-Op/Procedure Note Date of Surgery/Procedure: 12/04/16 Operative Procedure(s): left total hip arthroplasty Pre Op Diagnosis: left hip osteoarthrosis Post-Op Diagnosis: Same Anesthesia Technique: General ET Tube, Local Primary Surgeon: Kvng Angel Anesthesia Provider: Tammie Cabrera Vest Busheler: Suzanne Garcia Vest Busheler: Jaqueline Tomas EBL in mLs: 600 Complications: None Condition: Good
--- NOTE | 2016-12-08 11:58 | OR ---
DATE OF OPERATION: 12/04/2016 SURGEON: Kvng Angel MD OPERATION PERFORMED: Left total hip arthroplasty. PREOPERATIVE DIAGNOSIS: Left hip osteoarthrosis. POSTOPERATIVE DIAGNOSIS: Left hip osteoarthrosis. ANESTHESIA: General endotracheal intubation with local. ANESTHESIA PROVIDER: Ning Rhodes CRNA. ASSISTANTS: Suzanne Garcia PA-C and Jaqueline Tomas LPN. ESTIMATED BLOOD LOSS: 600 mL. COMPLICATIONS: None. CONDITION: Stable. IMPLANTS: 1. Parris size 52 titanium solid acetabular cup. 2. Parris size 3 Accolade II stem. 3. Size D 36 mm polyethylene. 4. 36 mm +0 Biolox Parris head. DESCRIPTION OF PROCEDURE: The patient was identified in the preop holding area. Proper site was marked and identified by the surgeon. The patient was taken back to the operative theater where after adequate anesthesia, the patient was placed in a right lateral decubitus position. Axillary roll was then placed, and all bony prominences were well padded. Pegs were then placed and were well padded. The left hip was then sterilely prepped and draped in usual sterile fashion. OR time-out was performed. The patient received 2 g IV Ancef. At this time, standard posterior incision was made centered over the greater trochanter. This was taken down to the IT band and gluteal fascia, which was incised along the incisional length. Charnley retractor was then placed. Short external rotators were identified. Piriformis was identified and takedown of the capsule as well as short external rotators were done to the level of the lesser trochanter. At this time, the hip was dislocated. A neck cut guide was then placed and neck cut was then completed. This found to be an adequate resection. Anterior and posterior acetabular retractors then placed and found to be in adequate position. At this time, starting with a size 45 reamer, I was able to ream up to a 52 for a 52 mm cup, was found to have adequate fixation. The 52 mm Tritanium acetabular cup was then placed in roughly 20-30 degrees of anteversion as well as 45 degrees of abduction with over coverage of both laterally and posteriorly. At this time, the 36 mm size D flat liner was then impacted in place. Attention was turned to the femur. Box chisel was used out laterally and the starter awl was placed down the canal. Starting with the 0 broach, I was able to broach up to a size 3 which was found to be rotationally and vertically stable. Standard 0 neck was placed 127 degrees and 36 mm was trialed. It was found to have adequate amish of leg lengths along with no instability noted throughout range of motion. At this time, the hip was dislocated. Size 3 Accolade II stem was then impacted into place and a 36 mm +0 head was impacted into place. Hip was then relocated at this time, 1 L dilute Betadine solution was then irrigated through the hip along with 3 L pulse lavage irrigation with Ancef. Periarticular injection was then completed. #5 Ethibond suture was used for closure of the piriformis tendon and short external rotators. #2 barbed suture was used for closure of the IT band and gluteal fascia after vancomycin powder and topical tranexamic acid was placed. 2-0 Vicryl was used subcutaneously and Prineo was used for the skin. The patient tolerated the procedure well and sent to PACU in stable condition. REAGAN /[id number]
== END 2016-12-05 15:55 | disposition home or self-care (01) | DRG 301 ==
LOC: JD.SDS 06:59 → JD.MS 07:04 → EDSTATUS 09:00
PROVIDERS: ADMIT Orthopaedic Surgery; ATTEND Orthopaedic Surgery
PROC: 0SRB019 Replacement of Left Hip Joint with Metal Synthetic Substitute, Cemented, Open Approach (ICD-10-PCS; principal; 2016-12-04)
DX: M16.12 Unilateral primary osteoarthritis, left hip (principal); H54.7 Unspecified visual loss; I11.0 Hypertensive heart disease with heart failure; I50.9 Heart failure, unspecified; G47.33 Obstructive sleep apnea (adult) (pediatric); K21.9 Gastro-esophageal reflux disease without esophagitis; K58.9 Irritable bowel syndrome, unspecified; N31.9 Neuromuscular dysfunction of bladder, unspecified; G89.29 Other chronic pain; M54.9 Dorsalgia, unspecified; M79.1 Myalgia; F32.9 Major depressive disorder, single episode, unspecified; F41.9 Anxiety disorder, unspecified; Z96.641 Presence of right artificial hip joint; Z87.891 Personal history of nicotine dependence; Z88.8 Allergy status to other drugs, medicaments and biological substances; Z91.09 Other allergy status, other than to drugs and biological substances; Z79.899 Other long term (current) drug therapy
CPT/HCPCS: 01214; 36415; 73501-26-LT; 73501-LT; 80053; 82962; 83036; 85025; 86850; 86900; 86901; 87641; 97110-GP; 97116-GP; 97162-GP; 97166-GO; 97530-GP; 97535-GO; 99222; 99232; A9270-GY; C1776; J0690; J1100; J1170; J1200; J1885; J2175; J2250; J2270; J2370; J2704; J3010; J3370; J3490; J7120

== ENCOUNTER 2017-07-02 07:03 | Inpatient (IN) | payer BC ==
[~2017-07-02 07:03] MED LIST changes: +EPINEPHrine 1 MG/ML SDV ONE; +Lidocaine 1%/Sod Bicarbonate in NS 8.4% 1 ML Syringe IDERM PRN; -Lidocaine 1%/Sod Bicarbonate in NS 8.4% 1 ML Syringe PRN; +Ropivacaine 0.5% 5 MG/ML 30 ML SDV ONE
[2017-07-02] MEDS ORDERED: Lidocaine 1% 4 ML ONE (07:05)
[2017-07-02] MEDS ORDERED: Dexamethasone 4 MG/ML 5 ML MDV ONE (07:06)
[2017-07-02] MEDS ORDERED: Propofol 200 MG/20 ML SDV ONE (07:06)
[2017-07-02] MEDS ORDERED: fentaNYL 250 MCG/5 ML SDV ONE (07:06)
[2017-07-02] MEDS ORDERED: Ketamine 500 mg/10 ML MDV ONE (07:06)
[2017-07-02] MEDS ORDERED: Ketorolac 30 MG/ML SDV ONE (07:06)
[2017-07-02] MEDS ORDERED: Midazolam 1 MG/ML 2 ML SDV ONE (07:06)
[2017-07-02] MEDS ORDERED: ceFAZolin 1 GM Vial ONE ×2 (07:14→07:21)
[2017-07-02] MEDS ORDERED: Rocuronium 50 MG/5 ML Vial ONE (07:15)
[2017-07-02] MEDS ORDERED: Vancomycin 1 GM SDV ONE (07:21)
[2017-07-02] MEDS ORDERED: Iodine/Sodium Iodide 2% Tincture 30 ML Bottle ONE (07:21)
[2017-07-02] MEDS ORDERED: Bupivacaine 0.25% 30 ML SDV ONE (07:21)
--- NOTE | 2017-07-02 07:37 | PCM.PREANE ---
Preanesthetic Assessment - Procedure Proposed Procedure: left total knee replacement - Anesthesia/Transfusion/Family Hx Anesthesia History: Prior Anesthesia Without Reaction Family History of Anesthesia Reaction: No Transfusion History: No Prior Transfusion(s) - Review of Systems General: No Symptoms Pulmonary: No Symptoms Cardiovascular: No Symptoms Gastrointestinal: No Symptoms Neurological: No Symptoms Other: Reports: Easy Bruising, Anxiety - Physical Assessment NPO Status Date: 07/01/17 NPO Status Time: 22:30 Pulse: 63 O2 Sat by Pulse Oximetry: 97 Respiratory Rate: 16 Blood Pressure: 133/66 Temperature: 98.2 F Height: 5 ft 3 in Weight: 87 kg ASA Class: 2 Mental Status: Alert & Oriented x3 Airway Class: Mallampati = 1 Dentition: Reports: Dentures (top), Partial (bottom) Thyro-Mental Finger Breadths: 3 Mouth Opening Finger Breadths: 3 ROM/Head Extension: Full Lungs: Clear to Auscultation, Normal Respiratory Effort Cardiovascular: Regular Rate, Regular Rhythm - Allergies Allergies/Adverse Reactions: Allergies Allergy/AdvReac Type Severity Reaction Status Date / Time adhesive tape Allergy Rash Verified 06/29/17 14:37 metoclopramide [From Reglan] Allergy Cannot Verified 06/29/17 14:37 Remember - Blood Blood Available: No - Acknowledgements Anesthesia Type Planned: General Anesthesia Pt an Appropriate Candidate for the Planned Anesthesia: Yes Alternatives and Risks of Anesthesia Discussed w Pt/Guardian: Yes Pt/Guardian Understands and Agrees with Anesthesia Plan: Yes PreAnesthesia Questionnaire HEENT History: Reports: Impaired Vision, Sinusitis Other HEENT History: lower partial, full upper denture, submandibular gland swelling, wears contacts Cardiovascular History: Reports: Angina, Hypertension, Other (See Below) Other Cardiovascular History: tachycardia Respiratory History: Reports: Sleep Apnea Gastrointestinal History: Reports: GERD, Hemorrhoids, Irritable Bowel Syndrome, Other (See Below) Other Gastrointestinal History: RUQ pain, bloody diarrhea, hematochezia, ulcerative colitis, c-diff Genitourinary History: Reports: Other (See Below) Other Genitourinary History: dyspareunia, pelvic pain, neurogenic bladder, hematuria GLASS BLOWER History: Reports: Dysfunctional Uterine Bleeding, Endometriosis Other OB/BYN History: L breast mass, endometrosis Musculoskeletal History: Reports: Back Pain, Chronic, Osteoarthritis, Other ( See Below) Other Musculoskeletal History: joint pain, lumbar radiculopathy, myofasical muscle pain, monoarticular arthritis, carpal tunnel syndrome Neurological History: Reports: Other (See Below) Other Neuro History: cauda equina with surgical intervention in 2016, paresthesia, paraspinal hematoma requiring evacuation post cauda equina surgery , 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 Psychiatric History: Reports: Anxiety, Depression, Other (See Below) Other Psychiatric History: chronic pain syndrome Endocrine/Metabolic History: Reports: None Hematologic History: Reports: Other (See Below) Other Hematologic History: hematoma evacuation Immunologic History: Reports: Immunosuppression Oncologic (Cancer) History: Reports: Malignant Melanoma Dermatologic History: Reports: Other (See Below) Other Dermatologic History: melanoma, gluteal abcess, L axillary mass, pilonidal sinus cyst with abcess, dysplatic nevi - Infectious Disease History Infectious Disease History: Reports: Chicken Pox - Past Surgical History Head Surgeries/Procedures: Reports: None HEENT Surgical History: Reports: None Cardiovascular Surgical History: Reports: None Respiratory Surgical History: Reports: None GI Surgical History: Reports: None Female Surgical History: Reports: None, Hysterectomy, Oophorectomy Endocrine Surgical History: Reports: None Neurological Surgical History: Reports: Other (See Below) Other Neurological Surgeries/Procedures: see above Musculoskeletal Surgical History: Reports: Carpal Tunnel, Hip Replacement, Other (See Below) Other Musculoskeletal Surgeries/Procedures:: right total hip replacement, bilateral carpal tunnel release, laminectomy and bilateral foramenectomy [id number] Dermatological Surgical History: Reports: Skin Biopsy - SUBSTANCE USE Smoking Status *Q: Former Smoker (quit 2 years ago) Tobacco Use Within Last Twelve Months: No Second Hand Smoke Exposure: Yes Days Per Week of Alcohol Use: 0 Recreational Drug Use History: No - HOME MEDS Home Medications: Home Meds Gabapentin [Neurontin] 300 mg PO TID 04/14/16 [History] Pantoprazole Sodium 40 mg PO DAILY 12/01/16 [History] Cholecalciferol (Vitamin D3) [Vitamin D] 5,000 units PO DAILY 12/04/16 [History] Lisinopril/Hydrochlorothiazide [Lisinopril-Hctz 20-25 mg Tab] 1 tab PO DAILY 04/21 [History] Escitalopram Oxalate 20 mg PO DAILY 06/29/17 [History] Estradiol 10 mcg VAG ASDIRECTED 06/29/17 [History] busPIRone [Buspar] 10 mg PO TID 06/29/17 [History] oxyCODONE ER [OxyCONTIN] 10 mg PO QID PRN 06/29/17 [History] - CURRENT (IN HOUSE) MEDS Current Meds: Current Medications Aspirin (Ecotrin) 325 mg PO BID [facility] Bisacodyl (Dulcolax) 5 mg PO DAILY PRN PRN Reason: Constipation Morphine Sulfate 8 mg/Epinephrine HCl 0.3 mg/Cefuroxime Sodium 750 mg/Ketorolac Tromethamine 30 mg/Sodium Chloride 27.9 ml 0 mg .XX ONETIME ONE Stop: 07/02/17 09:01 Cyclobenzaprine HCl (Flexeril) 10 mg PO TID PRN PRN Reason: Spasms Docusate Sodium (Colace) 100 mg PO BID [facility] Famotidine (Pepcid) 20 mg PO Q12H [facility] Lactated Ringer's (Ringers, Lactated) 1,000 mls @ 125 mls/hr IV ASDIRECTED [facility] Stop: 07/02/17 23:00 Cefazolin Sodium/Dextrose 2 gm (/ Premix) 50 mls @ 100 mls/hr IV Q8H [facility] Stop: 07/02/17 23:44 Ketorolac Tromethamine (Toradol) 15 mg IVPUSH Q6H PRN PRN Reason: Pain Lidocaine/Sodium Bicarbonate (Buffered Lidocaine 1% In Ns 8.4%) 0.25 ml IDERM ONETIME PRN PRN Reason: Prior to IV Start Stop: 07/02/17 18:00 Magnesium Hydroxide (Milk Of Magnesia) 30 ml PO BID PRN PRN Reason: Constipation Morphine Sulfate (Morphine) 2 mg IVPUSH Q2H PRN PRN Reason: Breakthrough Pain Naloxone HCl (Narcan) 0.1 mg IVPUSH Q5M PRN PRN Reason: Oversedation Ondansetron HCl (Zofran) 4 mg IVPUSH Q6H PRN PRN Reason: Nausea/Vomiting Oxycodone/Acetaminophen (Percocet 325-5 Mg) 1 - 2 tab PO Q4H PRN PRN Reason: Pain Senna (Senna) 8.6 mg PO BID PRN PRN Reason: Constipation Sodium Chloride (Saline Flush) 10 ml FLUSH ASDIRECTED PRN PRN Reason: Keep Vein Open Stop: 07/02/17 18:00 Discontinued Medications Bupivacaine HCl (Marcaine 0.25%) Confirm Administered Dose 30 ml .ROUTE .ST- MED ONE Stop: 07/02/17 07:22 Cefazolin Sodium (Ancef) Confirm Administered Dose 2 gm .ROUTE .ST-MED ONE Stop: 07/02/17 07:15 Cefazolin Sodium (Ancef) Confirm Administered Dose 2 gm .ROUTE .STK-MED ONE Stop: 07/02/17 07:22 Dexamethasone (Dexamethasone) Confirm Administered Dose 20 mg .ROUTE .ST-MED ONE Stop: 07/02/17 07:07 Epinephrine HCl (Adrenalin) Confirm Administered Dose 1 mg .ROUTE .ST-MED ONE Stop: 07/02/17 06:55 Fentanyl (Sublimaze) Confirm Administered Dose 250 mcg .ROUTE .ST-MED ONE Stop: 07/02/17 07:07 Lidocaine HCl (Xylocaine-Mpf 1%) Confirm Administered Dose 4 mls @ as directed .ROUTE .ST-MED ONE Stop: 07/02/17 07:06 Iodine (Iodine 2% Mild Tincture) Confirm Administered Dose 30 ml .ROUTE .ST- MED ONE Stop: 07/02/17 07:22 Ketamine HCl (Ketalar) Confirm Administered Dose 500 mg .ROUTE .ST-MED ONE Stop: 07/02/17 07:07 Ketorolac Tromethamine (Toradol) Confirm Administered Dose 30 mg .ROUTE .ST- MED ONE Stop: 07/02/17 07:07 Midazolam HCl (Versed 1 Mg/Ml) Confirm Administered Dose 2 mg .ROUTE .ST-MED ONE Stop: 07/02/17 07:07 Propofol (Diprivan 20 Ml) Confirm Administered Dose 600 mg .ROUTE .ST-MED ONE Stop: 07/02/17 07:07 Rocuronium [place] (Zemuron) Confirm Administered Dose 50 mg .ROUTE .ST-MED ONE Stop: 07/02/17 07:16 Ropivacaine (Naropin 0.5%) Confirm Administered Dose 30 ml .ROUTE .ST-MED ONE Stop: 07/02/17 06:55 Tranexamic Acid (Cyklokapron) Confirm Administered Dose 1,000 mg .ROUTE .STK- MED ONE Stop: 07/02/17 07:22 Vancomycin HCl (Vancomycin) Confirm Administered Dose 1 gm .ROUTE .STK-MED ONE Stop: 07/02/17 07:22
[2017-07-02] MEDS ORDERED: Phenylephrine/Normal Saline 100 MCG/ML 10 ML Syringe ONE (08:19)
[2017-07-02] MEDS ORDERED: HYDROmorphone 0.5 MG/0.5 ML Syringe IVPUSH PRN (08:25)
[2017-07-02] MEDS ORDERED: Ondansetron 4 MG/2 ML SDV IVPUSH PRN ×2 (08:25→11:00)
[2017-07-02] MEDS ORDERED: Meperidine PF 50 MG/ML Syringe IVPUSH PRN (08:25)
[2017-07-02] MEDS ORDERED: HYDROmorphone 0.5 MG/0.5 ML Syringe ONE ×3 (08:48→09:11)
[2017-07-02] MEDS ORDERED: Morphine 8 MG, EPINEPHrine 0.3 MG, Cefuroxime 750 MG, Ketorolac 30 MG, Sodium Chloride ... ONE ×5 (09:00)
[2017-07-02] MEDS ORDERED: Lidocaine 1% 2 ML ONE (09:10)
[2017-07-02] MEDS ORDERED: Lactated Ringers 1,000 ML ONE ×2 (09:14→09:41)
[2017-07-02] MEDS ORDERED: ePHEDrine 50 MG/ML SDV ONE (09:54)
[2017-07-02] MEDS ORDERED: fentaNYL 100 MCG/2 ML SDV ONE (10:02)
--- NOTE | 2017-07-02 10:12 | PCM.POSTAN ---
POST ANESTHESIA ASSESSMENT - MENTAL STATUS Mental Status: Alert, Oriented - VITAL SIGNS Pulse Rate: 98 SaO2: 100 Resp Rate: 14 Blood Pressure: 143/73 Temperature: 98.3 F - RESPIRATORY Respiratory Status: Respiratory Rate WNL, Airway Patent, O2 Saturation Stable, Supplemental Oxygen - CARDIOVASCULAR CV Status: Pulse Rate WNL, Blood Pressure Stable - GASTROINTESTINAL GI Status: No Symptoms - PAIN Pain Score: 8 - POST OP HYDRATION Hydration Status: Adequate & Stable
--- NOTE | 2017-07-02 10:14 | PCM.SN ---
- Free Text/Narrative Note: Left selective femoral nerve block at the adductor canal for post-procedure pain control under US guidance requested by Dr. Angel. Time Out: 1020 Start: 1026 End: 1035 Chart reviewed. Consent signed. Questions answered. Appropriate monitors applied. Time out performed. Left mid-shaft femur identified with ultrasound, scanning medially of femur, the femoral artery in the adductor canal visualized , and the femoral nerve located laterally to the artery. The skin was prepped lateral to the ultrasound probe with chlorahexadine times two. The 21ga 4 insulated block needle was inserted under direct ultrasound guidance into the adductor canal. 25mL of 0.5% ropivacaine with 1:200,000 epinephrine was injected circumferentially around the nerve with intermittent negative aspiration noted. Patient tolerated the procedure well. Aseptic technique noted along with sterile gloves, mask, and sterile probe cover. See pictures on progress note and vital signs on nurses notes. Block completed in PACU with assist by Greta Judge CRNA
[2017-07-02] MEDS: fentaNYL 100 MCG/2 ML SDV IVPUSH PRN ×4 (10:20→11:12)
[2017-07-02] MEDS ORDERED: Sennosides 8.6 MG Tab PO PRN (11:00)
[2017-07-02] MEDS ORDERED: Magnesium Hydroxide 400 MG/5 ML Susp 30 ML Cup PO PRN (11:00)
[2017-07-02] MEDS ORDERED: Morphine 2 MG/ML Syringe IVPUSH PRN (11:00)
[2017-07-02] MEDS ORDERED: Bisacodyl 5 MG Tab PO PRN (11:00)
[2017-07-02] MEDS ORDERED: Naloxone 0.4 MG/ML SDV IVPUSH PRN (11:00)
[2017-07-02] MEDS ORDERED: Gabapentin 300 MG Cap PO SCH (11:15)
[2017-07-02] MEDS ORDERED: oxyCODONE ER 10 MG TAB.ER PO SCH (11:15)
[2017-07-02] MEDS ORDERED: ESTRADIOL 10 MCG VAG SCH (11:45)
--- NOTE | 2017-07-02 11:55 | CR ---
Left knee: AP and lateral views of the left knee were obtained. Comparison: No prior left knee exam. Knee prosthesis is seen. Components are aligned. Underlying bony structures are intact. Soft tissue air is seen. Patellar prosthesis is also noted. Impression: 1. Satisfactory postop radiographic appearance of recently placed left knee prosthesis. Diagnostic code #2
[2017-07-02] MEDS: Gabapentin 300 MG Cap PO SCH ×2 (15:45→20:39)
[2017-07-02] MEDS: ceFAZolin 2 GM in Premix Bag 1 BAG IV SCH ×2 (15:45→22:42)
[2017-07-02] MEDS ORDERED: Lisinopril 20 MG Tab PO ONE (16:12)
[2017-07-02] MEDS ORDERED: Hydrochlorothiazide 25 MG Tab PO ONE (16:13)
[2017-07-02] MEDS: Ketorolac 15 MG/ML SDV IVPUSH PRN (16:25)
[2017-07-02] MEDS: Acetaminophen/oxyCODONE 325-5 MG Tab PO PRN ×2 (18:35→22:40)
[2017-07-02] MEDS: busPIRone 5 MG Tab PO SCH (20:38)
[2017-07-02] MEDS: Docusate Sodium 100 MG Cap PO SCH (20:39)
[2017-07-02] MEDS: Cyclobenzaprine 10 MG Tab PO PRN (20:39)
[2017-07-02] MEDS ORDERED: Famotidine 20 MG Tab PO SCH (21:00)
[2017-07-03] MEDS: Ketorolac 15 MG/ML SDV IVPUSH PRN (01:11)
[2017-07-03] MEDS: Acetaminophen/oxyCODONE 325-5 MG Tab PO PRN ×2 (03:12→08:08)
[2017-07-03] MEDS: Cyclobenzaprine 10 MG Tab PO PRN (05:20)
[2017-07-03] MEDS: ceFAZolin 2 GM in Premix Bag 1 BAG IV SCH (07:09)
--- NOTE | 2017-07-03 07:40 | PCM.CONS ---
H&P History of Present Illness - General Date of Service: 07/03/17 Admit Problem/Dx: Admission Diagnosis/Problem Admission Diagnosis/Problem Osteoarthritis of knee Source of Information: Patient, Family, Old Records, Provider, RN, Other ( surgical notes ) History Limitations: Reports: No Limitations - History of Present Illness Initial Comments - Free Text/Narative: Shanti Anand is a 47 yo female patient of Dr. Angel who is post-operative day 1 of left TKA. Hospital medicine was consulted for post-operative medical care. At this time she is resting comfortably in bed. Pain is 8/10 but is controlled. She denies any chest pain, shortness of breath, palpitations, nausea, or vomiting. She carries a history of: Angina, HTN, IBS, ulcerative colitis, chronic back pain, lumbar radiculopathy, pain syndrome, immunosupression, cauda equina syndrome, anxiety, neurogenic bladder, osteoarthritis, HOANG, depression, CHF, GERD, hypertension, prior C. difficile infection. She is a former smoker. She is a full code. Her primary care provider is Dr. Dashawn Jarvis. Left Knee Pain Score (Numeric/FACES): 7 Lower Back Pain Score (Numeric/FACES): 8 - Related Data Allergies/Adverse Reactions: Allergies Allergy/AdvReac Type Severity Reaction Status Date / Time adhesive tape Allergy Rash Verified 06/29/17 14:37 metoclopramide [From Reglan] Allergy Tremors Verified 07/02/17 12:10 Home Medications: Home Meds Gabapentin [Neurontin] 300 mg PO TID 04/14/16 [History] Pantoprazole Sodium 40 mg PO DAILY 12/01/16 [History] Cholecalciferol (Vitamin D3) [Vitamin D] 5,000 units PO DAILY 12/04/16 [History] Lisinopril/Hydrochlorothiazide [Lisinopril-Hctz 20-25 mg Tab] 1 tab PO DAILY 04/21 [History] Escitalopram Oxalate 20 mg PO DAILY 06/29/17 [History] busPIRone [Buspar] 10 mg PO TID 06/29/17 [History] Acetaminophen/oxyCODONE [Percocet 325-5 MG] 1 - 2 tab PO Q6H PRN #60 tablet [Rx] Aspirin [Ecotrin] 325 mg PO BID #84 tab.ec 07/02/17 [Rx] Bisacodyl [Dulcolax] 5 mg PO DAILY PRN tablet 07/02/17 [Rx] Cyclobenzaprine [Flexeril] 10 mg PO TID PRN #40 tablet 07/02/17 [Rx] Docusate Sodium [Colace] 100 mg PO BID cap 07/02/17 [Rx] Magnesium Hydroxide [Milk of Magnesia] 30 ml PO BID PRN cup 07/02/17 [Rx] Sennosides [Senna] 8.6 mg PO BID PRN tablet 07/02/17 [Rx] Past Medical History HEENT History: Reports: Impaired Vision, Sinusitis Other HEENT History: lower partial, full upper denture, submandibular gland swelling, Cardiovascular History: Reports: Angina, Hypertension, Other (See Below) Other Cardiovascular History: tachycardia Respiratory History: Reports: Sleep Apnea Gastrointestinal History: Reports: GERD, Hemorrhoids, Irritable Bowel Syndrome, Other (See Below) Other Gastrointestinal History: RUQ pain, bloody diarrhea, hematochezia, ulcerative colitis, c-diff Genitourinary History: Reports: Other (See Below) Other Genitourinary History: dyspareunia, pelvic pain, neurogenic bladder, hematuria 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: Dysfunctional Uterine Bleeding, Endometriosis Other OB/BYN History: L breast mass, endometrosis Musculoskeletal History: Reports: Back Pain, Chronic, Osteoarthritis, Other ( See Below) Other Musculoskeletal History: joint pain, lumbar radiculopathy, myofasical muscle pain, monoarticular arthritis, carpal tunnel syndrome Neurological History: Reports: Other (See Below) Other Neuro History: cauda equina with surgical intervention in 2016, paresthesia, paraspinal hematoma requiring evacuation post cauda equina surgery , 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 Psychiatric History: Reports: Anxiety, Depression, Other (See Below) Other Psychiatric History: chronic pain syndrome Endocrine/Metabolic History: Reports: None Hematologic History: Reports: Other (See Below) Other Hematologic History: hematoma evacuation Immunologic History: Reports: Immunosuppression Oncologic (Cancer) History: Reports: Malignant Melanoma Dermatologic History: Reports: Other (See Below) Other Dermatologic History: melanoma, gluteal abcess, L axillary mass, pilonidal sinus cyst with abcess, dysplatic nevi - Infectious Disease History Infectious Disease History: Reports: C-Difficile, Chicken Pox - Past Surgical History Head Surgeries/Procedures: Reports: None HEENT Surgical History: Reports: None Cardiovascular Surgical History: Reports: None Respiratory Surgical History: Reports: None GI Surgical History: Reports: None Female Surgical History: Reports: None, Hysterectomy, Oophorectomy Endocrine Surgical History: Reports: None Neurological Surgical History: Reports: Other (See Below) Other Neurological Surgeries/Procedures: see above Musculoskeletal Surgical History: Reports: Carpal Tunnel, Hip Replacement, Other (See Below) Other Musculoskeletal Surgeries/Procedures:: right total hip replacement, bilateral carpal tunnel release, laminectomy and bilateral foramenectomy L4L5 Dermatological Surgical History: Reports: Skin Biopsy Social & Family History - Family History Family Medical History: Noncontributory Cardiac: Reports: Heart Failure, MA Respiratory: Reports: Other (See Below) Other Respiratory Family Hisory: lung cancer : Reports: Other (See Below) Other Family History: kidney failure OBGYN: Reports: Endometriosis, Oncologic: Reports: Lung, Skin - Tobacco Use Smoking Status *Q: Former Smoker Years of Tobacco use: 30 Packs/Tins Daily: 1 Used Tobacco, but Quit: Yes Month/Year Tobacco Last Used: 2015 Second Hand Smoke Exposure: Yes - Caffeine Use Caffeine Use: Reports: None - Alcohol Use Days Per Week of Alcohol Use: 0 - Recreational Drug Use Recreational Drug Use: No Drug Use in Last 12 Months: No H&P Review of Systems - Review of Systems: Review Of Systems: See Below General: Reports: No Symptoms HEENT: Reports: No Symptoms Pulmonary: Reports: No Symptoms Cardiovascular: Reports: No Symptoms Gastrointestinal: Reports: No Symptoms Genitourinary: Reports: No Symptoms Musculoskeletal: Reports: Back Pain, Leg Pain Skin: Reports: No Symptoms Psychiatric: Reports: No Symptoms Neurological: Reports: No Symptoms Hematologic/Lymphatic: Reports: No Symptoms Immunologic: Reports: No Symptoms Exam - Exam Exam: See Below - Vital Signs Vital Signs: Last Vital Signs Temp 97.9 F 07/03/17 01:13 Pulse 74 07/03/17 01:13 Resp 16 07/03/17 01:13 BP 94/52 L 07/03/17 01:20 Pulse Ox 97 07/03/17 01:13 Weight: 201 lb 3.2 oz - Exam Quality Assessment: DVT Prophylaxis General: Alert, Oriented, Cooperative. No: Mild Distress HEENT: Conjunctiva Clear, EACs Clear, EOMI, Hearing Intact, Mucosa Moist & [place] , Nares Patent, Normal Nasal Septum, Posterior Pharynx Clear, PERRLA Neck: Supple, Trachea Midline Lungs: Clear to Auscultation, Normal Respiratory Effort Cardiovascular: Regular Rate, Regular Rhythm GI/Abdominal Exam: Normal Bowel Sounds, Soft, Non-Tender, No Organomegaly, No Distention, No Abnormal Bruit, No Mass, Pelvis Stable (Female) Exam: Deferred Rectal (Female) Exam: Deferred Back Exam: Normal Inspection, Full Range of Motion Extremities: No Pedal Edema, Normal Capillary Refill, Leg Pain, Limited Range of Motion, Other (Bandage in place on left leg. Bandage is dry and intact. Cooling pack in place. ) Peripheral Pulses: 2+: Radial (L), Radial (R), Posterior Tibial (L), Posterior Tibial (R), Dorsalis Pedis (L), Dorsalis Pedis (R) Skin: Warm, Dry, Intact Neurological: Cranial Nerves Intact (grossly) Neuro Extensive - Mental Status: Alert, Oriented x3, Normal Mood/Affect, Normal Cognition, Memory Intact Psychiatric: Alert, Normal Affect, Normal Mood - Patient Data Lab Results Last 24 hrs: Laboratory Results - last 24 hr 07/03/17 Range/Units 06:17 Sodium 134 L (136-145) mEq/L Potassium 3.3 L (3.5-5.1) mEq/L Chloride 99 (98-107) mEq/L Carbon Dioxide 27 (21-32) mEq/L Anion Gap 11.3 (5-15) BUN 16 (7-18) mg/dL Creatinine 0.8 (0.55-1.02) mg/dL Est Cr Clr Drug Dosing 71.91 mL/min Estimated GFR (MDRD) > 60 (>60) mL/min BUN/Creatinine Ratio 20.0 H (14-18) Glucose 94 (74-106) mg/dL Calcium 8.9 (8.5-10.1) mg/dL Total Bilirubin 0.2 (0.2-1.0) mg/dL AST 31 (15-37) U/L ALT 34 (14-59) U/L Alkaline Phosphatase 52 (46-116) U/L Total Protein 6.6 (6.4-8.2) g/dl Albumin 3.5 (3.4-5.0) g/dl Globulin 3.1 gm/dL Albumin/Globulin Ratio 1.1 (1-2) Result Diagrams: 07/03/17 06:17 07/03/17 06:17 Consult PN Assessment/Plan POD#: 1 Procedures: Procedures CARPAL TUNNEL SURGERY (08/05/15) CT LUMBAR SPINE W/O DYE (08/03/15) MR-STAPH DNA AMP PROBE (08/03/15) THER INJECTION CARP TUNNEL (07/09/15) X-RAY EXAM L-2 SPINE 4/>VWS (08/03/15) X-RAY EXAM OF PELVIS (08/03/15) (1) S/P total knee arthroplasty SNOMED Code(s): 1864056306977, 194719291, 5635703896587 Code(s): Z96.659 - PRESENCE OF UNSPECIFIED ARTIFICIAL KNEE JOINT Priority: High Current Visit: Yes Qualifiers: Laterality: left Qualified Code(s): Z96.652 - Presence of left artificial knee joint (2) Osteoarthritis SNOMED Code(s): 026623320 Code(s): M19.90 - UNSPECIFIED OSTEOARTHRITIS, UNSPECIFIED SITE Priority: High Current Visit: No Qualifiers: Osteoarthritis location: hip Osteoarthritis type: primary Laterality: left Qualified Code(s): M16.12 - Unilateral primary osteoarthritis, left hip (3) Chronic low back pain SNOMED Code(s): 135998140 Code(s): M54.5 - LOW BACK PAIN; G89.29 - OTHER CHRONIC PAIN Priority: Medium Current Visit: No Qualifiers: Back pain laterality: midline Sciatica laterality: sciatica laterality unspecified (4) Angina pectoris SNOMED Code(s): 589591855 Code(s): I20.9 - ANGINA PECTORIS, UNSPECIFIED Priority: Low Current Visit : No (5) HTN (hypertension) SNOMED Code(s): 37124124 Code(s): I10 - ESSENTIAL (PRIMARY) HYPERTENSION Priority: Medium Current Visit: No Qualifiers: Hypertension type: unspecified Qualified Code(s): I10 - Essential (primary ) hypertension (6) GERD (gastroesophageal reflux disease) SNOMED Code(s): 728811902 Code(s): K21.9 - GASTRO-ESOPHAGEAL REFLUX DISEASE WITHOUT ESOPHAGITIS Priority: Low Current Visit: No Qualifiers: Esophagitis presence: esophagitis presence not specified Qualified Code(s) : K21.9 - Gastro-esophageal reflux disease without esophagitis (7) Sleep apnea SNOMED Code(s): 00387737 Code(s): G47.30 - SLEEP APNEA, UNSPECIFIED Priority: Low Current Visit: No Qualifiers: Sleep apnea type: unspecified type Qualified Code(s): G47.30 - Sleep apnea , unspecified (8) IBS (irritable bowel syndrome) SNOMED Code(s): 87189672 Code(s): K58.9 - IRRITABLE BOWEL SYNDROME WITHOUT DIARRHEA Priority: Low Current Visit: No Qualifiers: Irritable bowel syndrome type: unspecified Qualified Code(s): K58.9 - Irritable bowel syndrome without diarrhea (9) Neurogenic bladder SNOMED Code(s): 266604706 Code(s): N31.9 - NEUROMUSCULAR DYSFUNCTION OF BLADDER, UNSPECIFIED Priority : Medium Current Visit: No (10) Anxiety SNOMED Code(s): 46752742 Code(s): F41.9 - ANXIETY DISORDER, UNSPECIFIED Priority: Low Current Visit: No (11) Other specified depressive episodes SNOMED Code(s): 81177048 Code(s): F32.89 - OTHER SPECIFIED DEPRESSIVE EPISODES Priority: Low Current Visit: No Problem List Initiated/Reviewed/Updated: Yes Plan: I/P: Acute: S/P left total hip arthroplasty - post-operative day 1 -DVT prophylaxis and pain management per primary care team -PT/OT -IS/RT -Monitor oxygen saturation -Titrate oxygen as needed -Vital signs stable -Monitor labs -Pre-operative Hgb was 12.7, today 9.6 -Pre-operative creatinine and was 0.56, today 0.8 -Pre-operative GFR was 116, today >60 Osteoarthritis of left knee -Pain management per primary care team Hypokalemia -Potassium 3.3 -Supplement Chronic: Angina HTN IBS ulcerative colitis chronic back pain lumbar radiculopathy chronic pain syndrome immunosupression History of cauda equina syndrome anxiety neurogenic bladder osteoarthritis, HOANG depression CHF GERD hypertension prior C. difficile infection Plan: CM for discharge planning GI prophylaxis Home medications as indicated Other orders as listed above Routine AM labs She is a full code. Her PCP is Dr. Dashawn Jarvis From a hospitalist standpoint she is doing well and is cleared for discharge pending primary team agreement. She has been working with PT/OT and has urinated. Her potassium was a bit low and she should follow-up with her PCP regarding this in the future. Thank you for allowing us to participate in the care of this patient!! Requesting Provider: Dr. Angel Date Consult Requested: 07/02/17 Reason for Consult: Post-operative medical management Patient History Reviewed: Yes Admission H&P Reviewed: Yes Time Spent (in minutes): 50
[2017-07-03] MEDS: busPIRone 5 MG Tab PO SCH (08:08)
[2017-07-03] MEDS: Gabapentin 300 MG Cap PO SCH (08:08)
[2017-07-03] MEDS: Docusate Sodium 100 MG Cap PO SCH (08:08)
[2017-07-03 08:09] VITALS: BP 98/69
--- NOTE | 2017-07-03 08:10 | PCM.SURGPN ---
- General Info Date of Service: 07/03/17 POD#: 1 Functional Status: Reports: Pain Controlled, Tolerating Diet, Ambulating, Urinating, Incentive Spirometry, Other (The pt states her pain is under better control now. ) - Patient Data Vitals - Most Recent: Last Vital Signs Temp 97.9 F 07/03/17 01:13 Pulse 74 07/03/17 01:13 Resp 16 07/03/17 01:13 BP 94/52 L 07/03/17 01:20 Pulse Ox 97 07/03/17 01:13 Weight - Most Recent: 201 lb 3.2 oz I&O - Last 24 Hours: Intake & Output 07/02/17 07/03/17 07/03/17 22:59 06:59 14:59 Intake Total 731 1650 Output Total 250 1100 Balance 481 550 Lab Results Last 24 Hrs: Laboratory Results - last 24 hr 07/03/17 Range/Units 06:17 Sodium 134 L (136-145) mEq/L Potassium 3.3 L (3.5-5.1) mEq/L Chloride 99 (98-107) mEq/L Carbon Dioxide 27 (21-32) mEq/L Anion Gap 11.3 (5-15) BUN 16 (7-18) mg/dL Creatinine 0.8 (0.55-1.02) mg/dL Est Cr Clr Drug Dosing 71.91 mL/min Estimated GFR (MDRD) > 60 (>60) mL/min BUN/Creatinine Ratio 20.0 H (14-18) Glucose 94 (74-106) mg/dL Calcium 8.9 (8.5-10.1) mg/dL Total Bilirubin 0.2 (0.2-1.0) mg/dL AST 31 (15-37) U/L ALT 34 (14-59) U/L Alkaline Phosphatase 52 (46-116) U/L Total Protein 6.6 (6.4-8.2) g/dl Albumin 3.5 (3.4-5.0) g/dl Globulin 3.1 gm/dL Albumin/Globulin Ratio 1.1 (1-2) Med Orders - Current: Current Medications Aspirin (Ecotrin) 325 mg PO BID [facility] Bisacodyl (Dulcolax) 5 mg PO DAILY PRN PRN Reason: Constipation Buspirone HCl (Buspar) 10 mg PO TID [facility] Last Admin: 07/02/17 20:38 Dose: 10 mg Cholecalciferol (Vitamin D3) 5,000 units PO DAILY [facility] Citalopram Hydrobromide (Celexa) 40 mg PO DAILY [facility] Cyclobenzaprine HCl (Flexeril) 10 mg PO TID PRN PRN Reason: Spasms Last Admin: 07/03/17 05:20 Dose: 10 mg Docusate Sodium (Colace) 100 mg PO BID [facility] Last Admin: 07/02/17 20:39 Dose: Not Given Gabapentin (Neurontin) 300 mg PO TID [facility] Last Admin: 07/02/17 20:39 Dose: 300 mg Hydrochlorothiazide (Hydrochlorothiazide) 25 mg PO DAILY [facility] Ketorolac Tromethamine (Toradol) 15 mg IVPUSH Q6H PRN PRN Reason: Pain Last Admin: 07/03/17 01:11 Dose: 15 mg Lisinopril (Prinivil) 20 mg PO DAILY [facility] Magnesium Hydroxide (Milk Of Magnesia) 30 ml PO BID PRN PRN Reason: Constipation Morphine Sulfate (Morphine) 2 mg IVPUSH Q2H PRN PRN Reason: Breakthrough Pain Naloxone HCl (Narcan) 0.1 mg IVPUSH Q5M PRN PRN Reason: Oversedation Ondansetron HCl (Zofran) 4 mg IVPUSH Q6H PRN PRN Reason: Nausea/Vomiting Oxycodone/Acetaminophen (Percocet 325-5 Mg) 1 - 2 tab PO Q4H PRN PRN Reason: Pain Last Admin: 07/03/17 03:12 Dose: 2 tab Pantoprazole Sodium (Protonix) 40 mg PO DAILY [facility] Senna (Senna) 8.6 mg PO BID PRN PRN Reason: Constipation Discontinued Medications Bupivacaine HCl (Marcaine 0.25%) Confirm Administered Dose 30 ml .ROUTE .STK- MED ONE Stop: 07/02/17 07:22 Last Admin: 07/02/17 09:18 Dose: 30 ml Cefazolin Sodium (Ancef) Confirm Administered Dose 2 gm .ROUTE .STK-MED ONE Stop: 07/02/17 07:15 Last Admin: 07/02/17 09:12 Dose: 2 gm Cefazolin Sodium (Ancef) Confirm Administered Dose 2 gm .ROUTE .STK-MED ONE Stop: 07/02/17 07:22 Morphine Sulfate 8 mg/Epinephrine HCl 0.3 mg/Cefuroxime Sodium 750 mg/Ketorolac Tromethamine 30 mg/Sodium Chloride 27.9 ml 0 mg .XX ONETIME ONE Stop: 07/02/17 09:01 Last Admin: 07/02/17 09:17 Dose: 788.3 mg Dexamethasone (Dexamethasone) Confirm Administered Dose 20 mg .ROUTE .STK-MED ONE Stop: 07/02/17 07:07 Ephedrine Sulfate (Ephedrine Sulfate) Confirm Administered Dose 50 mg .ROUTE .STK-MED ONE Stop: 07/02/17 09:55 Epinephrine HCl (Adrenalin) Confirm Administered Dose 1 mg .ROUTE .STK-MED ONE Stop: 07/02/17 06:55 Famotidine (Pepcid) 20 mg PO Q12H [facility] Fentanyl (Sublimaze) Confirm Administered Dose 250 mcg .ROUTE .STK-MED ONE Stop: 07/02/17 07:07 Fentanyl (Sublimaze) 50 mcg IVPUSH Q5M PRN PRN Reason: Pain Stop: 07/02/17 11:00 Last Admin: 07/02/17 11:12 Dose: 50 mcg Fentanyl (Sublimaze) Confirm Administered Dose 100 mcg .ROUTE .STK-MED ONE Stop: 07/02/17 10:03 Gabapentin (Neurontin) 300 mg PO ONETIME [facility] Stop: 07/02/17 13:00 Last Admin: 07/02/17 11:27 Dose: 300 mg Hydrochlorothiazide (Hydrochlorothiazide) 25 mg PO ONETIME ONE Stop: 07/02/17 16:14 Last Admin: 07/02/17 16:24 Dose: 25 mg Hydromorphone HCl (Dilaudid) 0.5 mg IVPUSH ONETIME PRN PRN Reason: Pain (severe 7-10) Stop: 07/02/17 11:00 Last Admin: 07/02/17 10:14 Dose: 0.5 mg Hydromorphone HCl (Dilaudid) Confirm Administered Dose 0.5 mg .ROUTE .STK-MED ONE Stop: 07/02/17 08:49 Hydromorphone HCl (Dilaudid) Confirm Administered Dose 0.5 mg .ROUTE .STK-MED ONE Stop: 07/02/17 08:50 Hydromorphone HCl (Dilaudid) Confirm Administered Dose 0.5 mg .ROUTE .STK-MED ONE Stop: 07/02/17 09:12 Lactated Ringer's (Ringers, Lactated) 1,000 mls @ 125 mls/hr IV ASDIRECTED [facility] Stop: 07/02/17 23:00 Last Admin: 07/02/17 07:45 Dose: 125 mls/hr Cefazolin Sodium/Dextrose 2 gm (/ Premix) 50 mls @ 100 mls/hr IV Q8H [facility] Stop: 07/03/17 07:59 Last Admin: 07/03/17 07:09 Dose: 100 mls/hr Lidocaine HCl (Xylocaine-Mpf 1%) Confirm Administered Dose 4 mls @ as directed .ROUTE .STK-MED ONE Stop: 07/02/17 07:06 Lidocaine HCl (Xylocaine-Mpf 1%) Confirm Administered Dose 2 mls @ as directed .ROUTE .STK-MED ONE Stop: 07/02/17 09:11 Lactated Ringer's (Ringers, Lactated) Confirm Administered Dose 1,000 mls @ as directed .ROUTE .STK-MED ONE Stop: 07/02/17 09:15 Lactated Ringer's (Ringers, Lactated) Confirm Administered Dose 1,000 mls @ as directed .ROUTE .STK-MED ONE Stop: 07/02/17 09:42 Iodine (Iodine 2% Mild Tincture) Confirm Administered Dose 30 ml .ROUTE .STK- MED ONE Stop: 07/02/17 07:22 Last Admin: 07/02/17 09:09 Dose: 18 ml Ketamine HCl (Ketalar) Confirm Administered Dose 500 mg .ROUTE .STK-MED ONE Stop: 07/02/17 07:07 Ketorolac Tromethamine (Toradol) Confirm Administered Dose 30 mg .ROUTE .STK- MED ONE Stop: 07/02/17 07:07 Lidocaine/Sodium Bicarbonate (Buffered Lidocaine 1% In Ns 8.4%) 0.25 ml IDERM ONETIME PRN PRN Reason: Prior to IV Start Stop: 07/02/17 18:00 Last Admin: 07/02/17 07:45 Dose: 0.25 ml Lisinopril (Prinivil) 20 mg PO DAILY ONE Stop: 07/02/17 16:13 Last Admin: 07/02/17 16:24 Dose: 20 mg Meperidine HCl (Demerol) 12.5 mg IVPUSH ONETIME PRN PRN Reason: shivering Stop: 07/02/17 11:00 Midazolam HCl (Versed 1 Mg/Ml) Confirm Administered Dose 2 mg .ROUTE .STK-MED ONE Stop: 07/02/17 07:07 Non-Formulary Medication (Estradiol [Estradiol]) 10 mcg VAG ASDIRECTED [facility] Ondansetron HCl (Zofran) 4 mg IVPUSH ONETIME PRN PRN Reason: Nausea/Vomiting Stop: 07/02/17 11:00 Oxycodone HCl (Oxycontin) 10 mg PO ONETIME [facility] Stop: 07/02/17 13:00 Last Admin: 07/02/17 11:22 Dose: 10 mg Phenylephrine HCl (Phenylephrine In Ns 100 Mcg/Ml) Confirm Administered Dose 1 mg .ROUTE .STK-MED ONE Stop: 07/02/17 08:20 Propofol (Diprivan 20 Ml) Confirm Administered Dose 600 mg .ROUTE .STK-MED ONE Stop: 07/02/17 07:07 Rocuronium [place] (Zemuron) Confirm Administered Dose 50 mg .ROUTE .STK-MED ONE Stop: 07/02/17 07:16 Ropivacaine (Naropin 0.5%) Confirm Administered Dose 30 ml .ROUTE .STK-MED ONE Stop: 07/02/17 06:55 Sodium Chloride (Saline Flush) 10 ml FLUSH ASDIRECTED PRN PRN Reason: Keep Vein Open Stop: 07/02/17 18:00 Tapentadol (Nucynta) 50 mg PO ONETIME ONE Stop: 07/02/17 13:01 Last Admin: 07/02/17 13:53 Dose: 50 mg Tranexamic Acid (Cyklokapron) Confirm Administered Dose 1,000 mg .ROUTE .STK- MED ONE Stop: 07/02/17 07:22 Last Admin: 07/02/17 09:24 Dose: 1,000 mg Vancomycin HCl (Vancomycin) Confirm Administered Dose 1 gm .ROUTE .STK-MED ONE Stop: 07/02/17 07:22 Last Admin: 07/02/17 09:20 Dose: 1 gm - Exam Wound/Incisions: Dressing Dry and Intact General: Alert, Cooperative, No Acute Distress Lungs: Normal Respiratory Effort Extremities: Other (Camilla's negative for RLE. Right thigh soft.) - Problem List Review Problem List Initiated/Reviewed/Updated: Yes - My Orders Last 24 Hours: Active Orders 24 hr Category Date Time Status Cooling Warming Measures [RC] ASDIRECTED Care 07/02/17 08:25 Inactive Pulse Oximetry [RC] ASDIRECTED Care 07/02/17 08:25 Active Ready for Discharge [RC] PER UNIT ROUTINE Care 07/03/17 08:05 Ordered Regular Diet [DIET] Diet 07/02/17 Lunch Active CBC W/O DIFF,HEMOGRAM [HEME] AM Lab 07/03/17 06:17 Received Acetaminophen/oxyCODONE [Percocet 325-5 MG] Med 07/02/17 11:00 Active 1 - 2 tab PO Q4H PRN Aspirin [Ecotrin] Med 07/03/17 09:00 Active 325 mg PO BID Bisacodyl [Dulcolax] Med 07/02/17 11:00 Active 5 mg PO DAILY PRN Cholecalciferol (Vitamin D3) [Vitamin D3] Med 07/03/17 09:00 Active 5,000 units PO DAILY Citalopram [Celexa] Med 07/03/17 09:00 Active 40 mg PO DAILY Cyclobenzaprine [Flexeril] Med 07/02/17 11:00 Active 10 mg PO TID PRN Docusate Sodium [Colace] Med 07/02/17 21:00 Active 100 mg PO BID Gabapentin [Neurontin] Med 07/02/17 15:00 Active 300 mg PO TID Hydrochlorothiazide Med 07/03/17 09:00 Active 25 mg PO DAILY Ketorolac [Toradol] Med 07/02/17 11:00 Active 15 mg IVPUSH Q6H PRN Lisinopril [Prinivil] Med 07/03/17 09:00 Active 20 mg PO DAILY Magnesium Hydroxide [Milk of Magnesia] Med 07/02/17 11:00 Active 30 ml PO BID PRN Morphine Med 07/02/17 11:00 Active 2 mg IVPUSH Q2H PRN Naloxone [Narcan] Med 07/02/17 11:00 Active 0.1 mg IVPUSH Q5M PRN Ondansetron [Zofran] Med 07/02/17 11:00 Active 4 mg IVPUSH Q6H PRN Pantoprazole [ProTONIX] Med 07/03/17 09:00 Active 40 mg PO DAILY Sennosides [Senna] Med 07/02/17 11:00 Active 8.6 mg PO BID PRN busPIRone [Buspar] Med 07/02/17 21:00 Active 10 mg PO TID Medication Orders Aspirin (Ecotrin) 325 mg PO BID [facility] Bisacodyl (Dulcolax) 5 mg PO DAILY PRN PRN Reason: Constipation Buspirone HCl (Buspar) 10 mg PO TID [facility] Last Admin: 07/02/17 20:38 Dose: 10 mg Cholecalciferol (Vitamin D3) 5,000 units PO DAILY [facility] Citalopram Hydrobromide (Celexa) 40 mg PO DAILY [facility] Cyclobenzaprine HCl (Flexeril) 10 mg PO TID PRN PRN Reason: Spasms Last Admin: 07/03/17 05:20 Dose: 10 mg Admin: 07/02/17 20:39 Dose: 10 mg Docusate Sodium (Colace) 100 mg PO BID [facility] Last Admin: 07/02/17 20:39 Dose: Not Given Gabapentin (Neurontin) 300 mg PO TID [facility] Last Admin: 07/02/17 20:39 Dose: 300 mg Admin: 07/02/17 15:45 Dose: 300 mg Hydrochlorothiazide (Hydrochlorothiazide) 25 mg PO DAILY [facility] Ketorolac Tromethamine (Toradol) 15 mg IVPUSH Q6H PRN PRN Reason: Pain Last Admin: 07/03/17 01:11 Dose: 15 mg Admin: 07/02/17 16:25 Dose: 15 mg Lisinopril (Prinivil) 20 mg PO DAILY [facility] Magnesium Hydroxide (Milk Of Magnesia) 30 ml PO BID PRN PRN Reason: Constipation Morphine Sulfate (Morphine) 2 mg IVPUSH Q2H PRN PRN Reason: Breakthrough Pain Naloxone HCl (Narcan) 0.1 mg IVPUSH Q5M PRN PRN Reason: Oversedation Ondansetron HCl (Zofran) 4 mg IVPUSH Q6H PRN PRN Reason: Nausea/Vomiting Oxycodone/Acetaminophen (Percocet 325-5 Mg) 1 - 2 tab PO Q4H PRN PRN Reason: Pain Last Admin: 07/03/17 03:12 Dose: 2 tab Admin: 07/02/17 22:40 Dose: 2 tab Admin: 07/02/17 18:35 Dose: 2 tab Pantoprazole Sodium (Protonix) 40 mg PO DAILY [facility] Senna (Senna) 8.6 mg PO BID PRN PRN Reason: Constipation - Assessment Assessment (Free Text/Narrative):: POD#1 - left TKA - Plan Plan (Free Text/Narrative):: 1. Discharge to home today if cleared by Hospitalist service. 2. Pt and feel the pt is prepared for discharge to home. 3. Discussed frequent mobility, TEDs, ASA BID with pt and . 4. Outpatient P.T. The pt's case was discussed with Dr. Angel.
[2017-07-03] MEDS ORDERED: Potassium Chloride 10% 20 MEQ/15 ML Soln 30 ML UD Cup PO ONE (08:14)
[2017-07-03] MEDS ORDERED: Cholecalciferol (Vitamin D3) 1,000 Unit Tab PO SCH (09:00)
[2017-07-03] MEDS ORDERED: Lisinopril 20 MG Tab PO SCH (09:00)
[2017-07-03] MEDS ORDERED: Hydrochlorothiazide 25 MG Tab PO SCH (09:00)
[2017-07-03] MEDS ORDERED: Aspirin 325 MG Tab.EC PO SCH (09:00)
[2017-07-03] MEDS ORDERED: Citalopram 20 MG Tab PO SCH (09:00)
[2017-07-03] MEDS ORDERED: Pantoprazole 40 MG Tab.CR PO SCH (09:00)
--- NOTE | 2017-07-03 12:45 | PCM.DCSUM1 ---
Discharge Summary - Hospital Course Brief History: Shanti is a 47 yo female who underwent left TKA with Dr. Angel on 07-02-2017. The procedure was completed under general anesthesia and an adductor block was provided post-operatively. The pt tolerated the procedure well and was admitted to the Medical-Surgical Unit. Medical management was provided by the Hospitalist service. The pt's Hospital course was uneventful. The pt's Hgb on POD#1 was 9.6. On POD#1, 325mg ASA BID was initiated for VTE prophylaxis. SCDs and TEDs were also ordered. A Mepilex dressing was placed at the incision site at the time of surgery and remained clean and dry. The pt participated in P.T. and O.T. and progressed well. The pt was allowed to WBAT. On POD#1, the pt was deemed appropriate to discharge to home with her . - Discharge Data Discharge Date: 07/03/17 Discharge Disposition: Home, Self-Care 01 Condition: Good - Patient Summary/Data Consults: Consultations 07/02/17 07:00 OT Evaluation and Treatment [CONS] Routine PT Evaluation and Treatment [CONS] Routine 07/02/17 07:01 Consult to Physician [CONS] Routine - Patient Instructions Diet: Usual Diet as Tolerated Activity: Apply Ice, As Tolerated, Elevate Extremity Driving: Do Not Drive Showering/Bathing: May Shower Wound/Incision Care: Keep Operative Site/Wound Site Clean and Dry, Do NOT Change Dressing Notify Provider of: Fever, Increased Pain, Swelling and Redness, Drainage, Nausea and/or Vomiting Other/Special Instructions: Please get up and moving around every hour while awake. This helps to prevent blood clots. Please use your walker and have help with mobility as needed. Please take a 325mg ASPIRIN TWICE DAILY. This also helps to prevent blood clots. The aspirin is being used for blood clot prevention and not for pain management, so please do not miss a dose of the medication. At home, please complete the exercises that you learned during the Hospital stay. Schedule for physical therapy. Use the pain medication as needed. The medication may cause drowsiness and constipation. Contact your primary care provider for instructions if you are constipated. You may use a stool softener like docusate sodium or Colace 100mg twice daily and/or a laxative like Miralax daily for constipation. Increase your water and fiber intake while you are using the pain medication. Please try to wean from use of the pain medication as soon as able. Wear the GIRMA hose during the day and you may remove these at night. Elevate the limb to decrease swelling. Place ice to the area often. Place a towel between your skin and the blue pad. Use the incentive spirometer often. Take deep breaths throughout the day. Increase your protein intake while you are healing. If you have diabetes, please closely monitor your blood sugars and notify your primary care provider with abnormal values. Call the Clinic with questions or concerns - [phone]. - Discharge Plan Prescriptions/Med Rec: Acetaminophen/oxyCODONE [Percocet 325-5 MG] 1 - 2 tab PO Q6H PRN #60 tablet PRN Reason: Pain Aspirin [Ecotrin] 325 mg PO BID #84 tab.ec Cyclobenzaprine [Flexeril] 10 mg PO TID PRN #40 tablet PRN Reason: Spasms Home Medications: Home Meds Gabapentin [Neurontin] 300 mg PO TID 04/14/16 [History] Pantoprazole Sodium 40 mg PO DAILY 12/01/16 [History] Cholecalciferol (Vitamin D3) [Vitamin D] 5,000 units PO DAILY 12/04/16 [History] Lisinopril/Hydrochlorothiazide [Lisinopril-Hctz 20-25 mg Tab] 1 tab PO DAILY 04/21 [History] Escitalopram Oxalate 20 mg PO DAILY 06/29/17 [History] busPIRone [Buspar] 10 mg PO TID 06/29/17 [History] Acetaminophen/oxyCODONE [Percocet 325-5 MG] 1 - 2 tab PO Q6H PRN #60 tablet [Rx] Aspirin [Ecotrin] 325 mg PO BID #84 tab.ec 07/02/17 [Rx] Bisacodyl [Dulcolax] 5 mg PO DAILY PRN tablet 07/02/17 [Rx] Cyclobenzaprine [Flexeril] 10 mg PO TID PRN #40 tablet 07/02/17 [Rx] Docusate Sodium [Colace] 100 mg PO BID cap 07/02/17 [Rx] Magnesium Hydroxide [Milk of Magnesia] 30 ml PO BID PRN cup 07/02/17 [Rx] Sennosides [Senna] 8.6 mg PO BID PRN tablet 07/02/17 [Rx] Patient Handouts: Total Knee Replacement, Care After Referrals: Suzanne Garcia PA-C [Physician Co Founder And Chairman] - Dashawn Jarvis MD [Primary Care Provider] - 07/10/17 2:45 pm - Patient Data Vitals - Most Recent: Last Vital Signs Temp 98.1 F 07/03/17 08:06 Pulse 69 07/03/17 08:06 Resp 16 07/03/17 08:06 BP 98/69 07/03/17 08:06 Pulse Ox 97 07/03/17 08:06 Weight - Most Recent: 201 lb 3.2 oz I&O - Last 24 hours: Intake & Output 07/02/17 07/03/17 07/03/17 22:59 06:59 14:59 Intake Total 731 1650 240 Output Total 250 1100 Balance 481 550 240 Lab Results - Last 24 hrs: Laboratory Results - last 24 hr 07/03/17 07/03/17 Range/Units 06:17 06:17 WBC 6.97 (3.98-10.04) K/mm3 RBC 3.77 L (3.98-5.22) M/mm3 Hgb 9.6 L (11.2-15.7) gm/L Hct 31.5 L (34.1-44.9) % MCV 83.6 (79.4-94.8) fl MCH 25.5 L (25.6-32.2) pg MCHC 30.5 L (32.2-35.5) g/dl RDW Std Deviation 53.9 H (36.4-46.3) fL Plt Count 228 (182-369) K/mm3 MPV 11.0 (9.4-12.3) fl Sodium 134 L (136-145) mEq/L Potassium 3.3 L (3.5-5.1) mEq/L Chloride 99 (98-107) mEq/L Carbon Dioxide 27 (21-32) mEq/L Anion Gap 11.3 (5-15) BUN 16 (7-18) mg/dL Creatinine 0.8 (0.55-1.02) mg/dL Est Cr Clr Drug Dosing 71.91 mL/min Estimated GFR (MDRD) > 60 (>60) mL/min BUN/Creatinine Ratio 20.0 H (14-18) Glucose 94 (74-106) mg/dL Calcium 8.9 (8.5-10.1) mg/dL Total Bilirubin 0.2 (0.2-1.0) mg/dL AST 31 (15-37) U/L ALT 34 (14-59) U/L Alkaline Phosphatase 52 (46-116) U/L Total Protein 6.6 (6.4-8.2) g/dl Albumin 3.5 (3.4-5.0) g/dl Globulin 3.1 gm/dL Albumin/Globulin Ratio 1.1 (1-2) Med Orders - Current: Current Medications Discontinued Medications Aspirin (Ecotrin) 325 mg PO BID [facility] Last Admin: 07/03/17 08:07 Dose: 325 mg Bisacodyl (Dulcolax) 5 mg PO DAILY PRN PRN Reason: Constipation Bupivacaine HCl (Marcaine 0.25%) Confirm Administered Dose 30 ml .ROUTE .STK- MED ONE Stop: 07/02/17 07:22 Last Admin: 07/02/17 09:18 Dose: 30 ml Buspirone HCl (Buspar) 10 mg PO TID [facility] Last Admin: 07/03/17 08:08 Dose: 10 mg Cefazolin Sodium (Ancef) Confirm Administered Dose 2 gm .ROUTE .STK-MED ONE Stop: 07/02/17 07:15 Last Admin: 07/02/17 09:12 Dose: 2 gm Cefazolin Sodium (Ancef) Confirm Administered Dose 2 gm .ROUTE .STK-MED ONE Stop: 07/02/17 07:22 Cholecalciferol (Vitamin D3) 5,000 units PO DAILY [facility] Last Admin: 07/03/17 08:08 Dose: 5,000 units Citalopram Hydrobromide (Celexa) 40 mg PO DAILY [facility] Last Admin: 07/03/17 08:07 Dose: 40 mg Morphine Sulfate 8 mg/Epinephrine HCl 0.3 mg/Cefuroxime Sodium 750 mg/Ketorolac Tromethamine 30 mg/Sodium Chloride 27.9 ml 0 mg .XX ONETIME ONE Stop: 07/02/17 09:01 Last Admin: 07/02/17 09:17 Dose: 788.3 mg Cyclobenzaprine HCl (Flexeril) 10 mg PO TID PRN PRN Reason: Spasms Last Admin: 07/03/17 05:20 Dose: 10 mg Dexamethasone (Dexamethasone) Confirm Administered Dose 20 mg .ROUTE .STK-MED ONE Stop: 07/02/17 07:07 Docusate Sodium (Colace) 100 mg PO BID [facility] Last Admin: 07/03/17 08:08 Dose: 100 mg Ephedrine Sulfate (Ephedrine Sulfate) Confirm Administered Dose 50 mg .ROUTE .STK-MED ONE Stop: 07/02/17 09:55 Epinephrine HCl (Adrenalin) Confirm Administered Dose 1 mg .ROUTE .STK-MED ONE Stop: 07/02/17 06:55 Famotidine (Pepcid) 20 mg PO Q12H [facility] Fentanyl (Sublimaze) Confirm Administered Dose 250 mcg .ROUTE .STK-MED ONE Stop: 07/02/17 07:07 Fentanyl (Sublimaze) 50 mcg IVPUSH Q5M PRN PRN Reason: Pain Stop: 07/02/17 11:00 Last Admin: 07/02/17 11:12 Dose: 50 mcg Fentanyl (Sublimaze) Confirm Administered Dose 100 mcg .ROUTE .STK-MED ONE Stop: 07/02/17 10:03 Gabapentin (Neurontin) 300 mg PO ONETIME [facility] Stop: 07/02/17 13:00 Last Admin: 07/02/17 11:27 Dose: 300 mg Gabapentin (Neurontin) 300 mg PO TID [facility] Last Admin: 07/03/17 08:08 Dose: 300 mg Hydrochlorothiazide (Hydrochlorothiazide) 25 mg PO DAILY [facility] Last Admin: 07/03/17 08:45 Dose: Not Given Hydrochlorothiazide (Hydrochlorothiazide) 25 mg PO ONETIME ONE Stop: 07/02/17 16:14 Last Admin: 07/02/17 16:24 Dose: 25 mg Hydromorphone HCl (Dilaudid) 0.5 mg IVPUSH ONETIME PRN PRN Reason: Pain (severe 7-10) Stop: 07/02/17 11:00 Last Admin: 07/02/17 10:14 Dose: 0.5 mg Hydromorphone HCl (Dilaudid) Confirm Administered Dose 0.5 mg .ROUTE .STK-MED ONE Stop: 07/02/17 08:49 Hydromorphone HCl (Dilaudid) Confirm Administered Dose 0.5 mg .ROUTE .STK-MED ONE Stop: 07/02/17 08:50 Hydromorphone HCl (Dilaudid) Confirm Administered Dose 0.5 mg .ROUTE .STK-MED ONE Stop: 07/02/17 09:12 Lactated Ringer's (Ringers, Lactated) 1,000 mls @ 125 mls/hr IV ASDIRECTED [facility] Stop: 07/02/17 23:00 Last Admin: 07/02/17 07:45 Dose: 125 mls/hr Cefazolin Sodium/Dextrose 2 gm (/ Premix) 50 mls @ 100 mls/hr IV Q8H [facility] Stop: 07/03/17 07:59 Last Admin: 07/03/17 07:09 Dose: 100 mls/hr Lidocaine HCl (Xylocaine-Mpf 1%) Confirm Administered Dose 4 mls @ as directed .ROUTE .STK-MED ONE Stop: 07/02/17 07:06 Lidocaine HCl (Xylocaine-Mpf 1%) Confirm Administered Dose 2 mls @ as directed .ROUTE .STK-MED ONE Stop: 07/02/17 09:11 Lactated Ringer's (Ringers, Lactated) Confirm Administered Dose 1,000 mls @ as directed .ROUTE .STK-MED ONE Stop: 07/02/17 09:15 Lactated Ringer's (Ringers, Lactated) Confirm Administered Dose 1,000 mls @ as directed .ROUTE .STK-MED ONE Stop: 07/02/17 09:42 Iodine (Iodine 2% Mild Tincture) Confirm Administered Dose 30 ml .ROUTE .STK- MED ONE Stop: 07/02/17 07:22 Last Admin: 07/02/17 09:09 Dose: 18 ml Ketamine HCl (Ketalar) Confirm Administered Dose 500 mg .ROUTE .STK-MED ONE Stop: 07/02/17 07:07 Ketorolac Tromethamine (Toradol) 15 mg IVPUSH Q6H PRN PRN Reason: Pain Last Admin: 07/03/17 01:11 Dose: 15 mg Ketorolac Tromethamine (Toradol) Confirm Administered Dose 30 mg .ROUTE .STK- MED ONE Stop: 07/02/17 07:07 Lidocaine/Sodium Bicarbonate (Buffered Lidocaine 1% In Ns 8.4%) 0.25 ml IDERM ONETIME PRN PRN Reason: Prior to IV Start Stop: 07/02/17 18:00 Last Admin: 07/02/17 07:45 Dose: 0.25 ml Lisinopril (Prinivil) 20 mg PO DAILY [facility] Last Admin: 07/03/17 08:45 Dose: Not Given Lisinopril (Prinivil) 20 mg PO DAILY ONE Stop: 07/02/17 16:13 Last Admin: 07/02/17 16:24 Dose: 20 mg Magnesium Hydroxide (Milk Of Magnesia) 30 ml PO BID PRN PRN Reason: Constipation Meperidine HCl (Demerol) 12.5 mg IVPUSH ONETIME PRN PRN Reason: shivering Stop: 07/02/17 11:00 Midazolam HCl (Versed 1 Mg/Ml) Confirm Administered Dose 2 mg .ROUTE .STK-MED ONE Stop: 07/02/17 07:07 Morphine Sulfate (Morphine) 2 mg IVPUSH Q2H PRN PRN Reason: Breakthrough Pain Naloxone HCl (Narcan) 0.1 mg IVPUSH Q5M PRN PRN Reason: Oversedation Non-Formulary Medication (Estradiol [Estradiol]) 10 mcg VAG ASDIRECTED [facility] Ondansetron HCl (Zofran) 4 mg IVPUSH Q6H PRN PRN Reason: Nausea/Vomiting Ondansetron HCl (Zofran) 4 mg IVPUSH ONETIME PRN PRN Reason: Nausea/Vomiting Stop: 07/02/17 11:00 Oxycodone HCl (Oxycontin) 10 mg PO ONETIME [facility] Stop: 07/02/17 13:00 Last Admin: 07/02/17 11:22 Dose: 10 mg Oxycodone/Acetaminophen (Percocet 325-5 Mg) 1 - 2 tab PO Q4H PRN PRN Reason: Pain Last Admin: 07/03/17 08:08 Dose: 2 tab Pantoprazole Sodium (Protonix) 40 mg PO DAILY [facility] Last Admin: 07/03/17 08:08 Dose: 40 mg Phenylephrine HCl (Phenylephrine In Ns 100 Mcg/Ml) Confirm Administered Dose 1 mg .ROUTE .STK-MED ONE Stop: 07/02/17 08:20 Potassium Chloride (Potassium Chloride) 40 meq PO ONETIME ONE Stop: 07/03/17 08:15 Last Admin: 07/03/17 08:27 Dose: 40 meq Propofol (Diprivan 20 Ml) Confirm Administered Dose 600 mg .ROUTE .STK-MED ONE Stop: 07/02/17 07:07 Rocuronium Parkin (Zemuron) Confirm Administered Dose 50 mg .ROUTE .STK-MED ONE Stop: 07/02/17 07:16 Ropivacaine (Naropin 0.5%) Confirm Administered Dose 30 ml .ROUTE .STK-MED ONE Stop: 07/02/17 06:55 Senna (Senna) 8.6 mg PO BID PRN PRN Reason: Constipation Sodium Chloride (Saline Flush) 10 ml FLUSH ASDIRECTED PRN PRN Reason: Keep Vein Open Stop: 07/02/17 18:00 Tapentadol (Nucynta) 50 mg PO ONETIME ONE Stop: 07/02/17 13:01 Last Admin: 07/02/17 13:53 Dose: 50 mg Tranexamic Acid (Cyklokapron) Confirm Administered Dose 1,000 mg .ROUTE .STK- MED ONE Stop: 07/02/17 07:22 Last Admin: 07/02/17 09:24 Dose: 1,000 mg Vancomycin HCl (Vancomycin) Confirm Administered Dose 1 gm .ROUTE .STK-MED ONE Stop: 07/02/17 07:22 Last Admin: 07/02/17 09:20 Dose: 1 gm
--- NOTE | 2017-07-05 08:25 | PCM.OPNOTE ---
- General Post-Op/Procedure Note Date of Surgery/Procedure: 07/02/17 Operative Procedure(s): left total knee arthroplasty Pre Op Diagnosis: left knee osteoarthrosis Post-Op Diagnosis: Same Anesthesia Technique: Local, MAC, Spinal Primary Surgeon: Kvng Angel Anesthesia Provider: Brenton Judge Restaurant Kitchen Manager: Suzanne Garcia Restaurant Kitchen Manager: Jaqueline Tomas EBLena in mLs: 350 Complications: None Condition: Good Free Text/Narrative:: size 3 tibial and femoral component size 29x9mm patella
--- NOTE | 2017-07-07 08:30 | OR ---
DATE OF OPERATION: 07/02/2017 SURGEON: Kvng Angel MD OPERATION PERFORMED: Left total knee arthroplasty. PREOPERATIVE DIAGNOSIS: Left knee osteoarthrosis. POSTOPERATIVE DIAGNOSIS: Left knee osteoarthrosis. ANESTHESIA: Local MAC with spinal. ANESTHESIA PROVIDER: Brenton Judge CRNA. [employer]SE GRADING SUPERVISOR: Suzanne Garcia PA-C, and Jaqueline Tomas LPN. ESTIMATED BLOOD LOSS: 350 mL. COMPLICATIONS: None. CONDITION: Stable. IMPLANTS: 1. Parris size 3 CR femur. 2. Parris size 3 press-fit tibial base plate. 3. Bourbon size 3 9-mm CS polyethylene insert. 4. Bourbon size 29 x 9 mm asymmetric patella. DESCRIPTION OF PROCEDURE: The patient was identified in the preop holding area. Proper site was marked and identified by the surgeon. The patient was taken back to the operating theater. After adequate anesthesia, the patient's left lower extremity had a nonsterile tourniquet applied and it was then sterilely prepped and draped in the usual sterile fashion. OR timeout was performed. The patient received 2 g IV Ancef. At this time, left lower extremity was exsanguinated. Tourniquet was insufflated to 300 mmHg. Standard medial parapatellar incision was made. Medial parapatellar arthrotomy was created. Deep fibers of the MCL were raised and anterior fat pad was resected. At this time, attention was turned to the patella. Patella measured 22, it was resected to a 13 for a 29 x 9 mm patella. Drill holes were then drilled and found to be in adequate position. The drill was then drilled in the distal femur and the intramedullary distal femoral cutting guide was then placed. 8 mm was resected off the distal femur and was found to be an adequate resection. Sizing guide was placed. It was found to be a size 3 femur that was shown on the implant record at the beginning of this dictation. The drill holes were drilled for the epicondylar axis using Whitesides line and epicondyles as reference. At this time, the 4-in-1 cutting block was placed. An anterior posterior and anterior and posterior chamfer cuts were then completed. The correct size box cut was then placed and the box cut was completed and found to be an adequate resection. Attention was turned to the tibia. The posterior medial lateral retractors were placed. The extramedullary tibial guide was placed. It was placed in the old footprint of the ACL. It was aligned with the center of the ankle and 0 degrees of slope, 9 mm was then resected off the unaffected lateral side. There was found to be an acceptable reduction. At this time, posterior osteophytes were removed along with medial and lateral meniscus. A trial implant was placed with a correct sized tibia that was mentioned at the beginning of the dictation. A 9-mm polyethylene was then placed. The patient's knee was brought through range of motion. The patella was tracking centrally and was stable to varus and valgus stress. Alignment was found to be roughly at 0 degrees. The tibia was stamped and drilled in proper rotation. The universal tibial base plate was press-fit in place. Next, the Parris size 3 CR femur was press-fit into place and the Bourbon size 3 9-mm CS polyethylene was placed. The patient's knee was brought into full extension. The patella was then press-fit in place at this time. Tourniquet was deflated. One liter dilute Betadine solution was irrigated through the knee along with 3 L of pulse lavage irrigation with Ancef. Periarticular injection was then completed. The patient's knee was brought through a range of motion. Knee was found to be stable to varus valgus stress, the patella was tracking centrally with full range of motion. At this time, a #2 barbed suture was used for closure of the medial parapatellar arthrotomy. Topical tranexamic acid was placed. 2-0 Vicryl was used subcutaneously, a running 3-0 Monocryl was used subcuticularly. The patient tolerated the procedure well and was sent to the PACU in stable condition. MMODAL /[id number] SHANIKA
== END 2017-07-03 10:38 | disposition home or self-care (01) | DRG 302 ==
LOC: JD.SDS 07:03 → JD.MS 07:06 → JD.SDS 11:19
PROVIDERS: ADMIT Orthopaedic Surgery; ATTEND Orthopaedic Surgery
PROC: 0SRD0JA Replacement of Left Knee Joint with Synthetic Substitute, Uncemented, Open Approach (ICD-10-PCS; principal; 2017-07-02)
PROC: 3E0T3BZ Introduction of Anesthetic Agent into Peripheral Nerves and Plexi, Percutaneous Approach (ICD-10-PCS; 2017-07-02)
DX: M17.12 Unilateral primary osteoarthritis, left knee (principal); I11.0 Hypertensive heart disease with heart failure; I50.9 Heart failure, unspecified; N31.9 Neuromuscular dysfunction of bladder, unspecified; K51.90 Ulcerative colitis, unspecified, without complications; F41.9 Anxiety disorder, unspecified; M25.762 Osteophyte, left knee; F32.9 Major depressive disorder, single episode, unspecified; M54.16 Radiculopathy, lumbar region; R32 Unspecified urinary incontinence; R51 Headache; K21.9 Gastro-esophageal reflux disease without esophagitis; M47.812 Spondylosis without myelopathy or radiculopathy, cervical region; I20.9 Angina pectoris, unspecified; G89.4 Chronic pain syndrome; G47.33 Obstructive sleep apnea (adult) (pediatric); H54.7 Unspecified visual loss; J32.9 Chronic sinusitis, unspecified; R00.0 Tachycardia, unspecified; K64.9 Unspecified hemorrhoids; N63.0 Unspecified lump in unspecified breast; E87.6 Hypokalemia; Z96.643 Presence of artificial hip joint, bilateral; Z85.820 Personal history of malignant melanoma of skin; Z79.891 Long term (current) use of opiate analgesic; Z79.899 Other long term (current) drug therapy; Z91.040 Latex allergy status; Z88.8 Allergy status to other drugs, medicaments and biological substances; Z87.891 Personal history of nicotine dependence; Z90.710 Acquired absence of both cervix and uterus
CPT/HCPCS: 01402; 36415; 64450; 73560-26-LT; 73560-LT; 80053; 85027; 97110-GP; 97116-GP; 97162-GP; 97165-GO; 97535-GO; A9270-GY; C1776; J0171; J0690; J0697; J1100; J1170; J1885; J2001; J2250; J2270; J2704; J2795; J3010; J3370; J3490; J7120

== ENCOUNTER 2017-07-07 19:00 | Emergency (ER) | payer BC ==
[2017-07-07 19:19] VITALS: BP 138/89
--- NOTE | 2017-07-07 20:34 | EDM.PDOC ---
ED HPI GENERAL MEDICAL PROBLEM - General Chief Complaint: Lower Extremity Injury/Pain Stated Complaint: TOTAL LEFT KNEE REPLACEMENT-SWOLLEN Time Seen by Provider: 07/07/17 20:00 Source of Information: Reports: Patient, Family () History Limitations: Reports: No Limitations - History of Present Illness INITIAL COMMENTS - FREE TEXT/NARRATIVE: Shanti is a 47yo female patient presents to ED accompanied by her with worsening swelling and pain to left leg/knee s/p TKA with Dr. Angel done on . She has been taking ASA 325mg BID as instructed. She has been taking pain medications as instructed. She has not been wearing gabriel hose as she tells me she has a machine at home that "squeezes" her leg periodically similar to SCD's worn in the hospital. She is ambulatory. ROM was "doing really good until yesterday when it got so tight". She states pain and swelling have worsened the past 48 hours. Also states she was seen in [place] [facility] yesterday with ultrasound which was "unable to tell if I had a blood clot because of the swelling". Swelling seemed to worsen today so she comes to ER here tonight. She lives in [place]. No CP, palpitations, cough, SOB. No f/c/s. Voiding without problems. Onset: Gradual Duration: Day(s): (3) Location: Reports: Lower Extremity, Left Quality: Reports: Pressure, Throbbing Severity: Moderate Worsens with: Reports: Movement Associated Symptoms: Denies: Chest Pain, Cough, Fever/Chills, Headaches, Loss of Appetite, Nausea/Vomiting, Shortness of Breath Left Knee Pain Score (Numeric/FACES): 8 - Related Data Allergies Allergy/AdvReac Type Severity Reaction Status Date / Time adhesive tape Allergy Rash Verified 07/07/17 19:16 metoclopramide [From Reglan] Allergy Tremors Verified 07/07/17 19:16 Home Meds: Home Meds Gabapentin [Neurontin] 300 mg PO TID 04/14/16 [History] Pantoprazole Sodium 40 mg PO DAILY 12/01/16 [History] Cholecalciferol (Vitamin D3) [Vitamin D] 5,000 units PO DAILY 12/04/16 [History] Lisinopril/Hydrochlorothiazide [Lisinopril-Hctz 20-25 mg Tab] 1 tab PO DAILY 04/21 [History] Escitalopram Oxalate 20 mg PO DAILY 06/29/17 [History] busPIRone [Buspar] 10 mg PO TID 06/29/17 [History] Acetaminophen/oxyCODONE [Percocet 325-5 MG] 1 - 2 tab PO Q6H PRN #60 tablet [Rx] Aspirin [Ecotrin] 325 mg PO BID #84 tab.ec 07/02/17 [Rx] Bisacodyl [Dulcolax] 5 mg PO DAILY PRN tablet 07/02/17 [Rx] Cyclobenzaprine [Flexeril] 10 mg PO TID PRN #40 tablet 07/02/17 [Rx] Docusate Sodium [Colace] 100 mg PO BID cap 07/02/17 [Rx] Magnesium Hydroxide [Milk of Magnesia] 30 ml PO BID PRN cup 07/02/17 [Rx] Sennosides [Senna] 8.6 mg PO BID PRN tablet 07/02/17 [Rx] oxyCODONE ER [OxyCONTIN] 10 mg PO ASDIRECTED PRN 07/07/17 [History] Past Medical History HEENT History: Reports: Impaired Vision, Sinusitis Other HEENT History: lower partial, full upper denture, submandibular gland swelling, Cardiovascular History: Reports: Angina, Hypertension, Other (See Below) Other Cardiovascular History: tachycardia Respiratory History: Reports: Sleep Apnea Gastrointestinal History: Reports: Diverticulosis, GERD, Hemorrhoids, Irritable Bowel Syndrome, Other (See Below) Other Gastrointestinal History: RUQ pain, bloody diarrhea, hematochezia, ulcerative colitis, c-diff Genitourinary History: Reports: Other (See Below) Other Genitourinary History: dyspareunia, pelvic pain, neurogenic bladder, hematuria INSECT CONTROL AIDE History: Reports: Dysfunctional Uterine Bleeding, Endometriosis Other OB/BYN History: L breast mass, endometrosis Musculoskeletal History: Reports: Back Pain, Chronic, Osteoarthritis, Other ( See Below) Other Musculoskeletal History: joint pain, lumbar radiculopathy, myofasical muscle pain, monoarticular arthritis, carpal tunnel syndrome Neurological History: Reports: Other (See Below) Other Neuro History: cauda equina with surgical intervention in 2016, paresthesia, paraspinal hematoma requiring evacuation post cauda equina surgery , 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 Psychiatric History: Reports: Anxiety, Depression, Other (See Below) Other Psychiatric History: chronic pain syndrome Endocrine/Metabolic History: Reports: None Hematologic History: Reports: Anemia, Other (See Below) Other Hematologic History: hematoma evacuation, hypokalemia Immunologic History: Reports: Immunosuppression Oncologic (Cancer) History: Reports: Malignant Melanoma Dermatologic History: Reports: Other (See Below) Other Dermatologic History: melanoma, gluteal abcess, L axillary mass, pilonidal sinus cyst with abcess, dysplatic nevi - Infectious Disease History Infectious Disease History: Reports: C-Difficile, Chicken Pox - Past Surgical History Head Surgeries/Procedures: Reports: None HEENT Surgical History: Reports: None Cardiovascular Surgical History: Reports: None Respiratory Surgical History: Reports: None GI Surgical History: Reports: None Female Surgical History: Reports: None, Hysterectomy, Oophorectomy Endocrine Surgical History: Reports: None Neurological Surgical History: Reports: Other (See Below) Other Neurological Surgeries/Procedures: see above Musculoskeletal Surgical History: Reports: Carpal Tunnel, Hip Replacement, Knee Replacement, Other (See Below) Other Musculoskeletal Surgeries/Procedures:: right total hip replacement, bilateral carpal tunnel release, laminectomy and bilateral foramenectomy [id number] Dermatological Surgical History: Reports: Skin Biopsy Social & Family History - Family History Family Medical History: Noncontributory Cardiac: Reports: Heart Failure, [place] Respiratory: Reports: Other (See Below) Other Respiratory Family Hisory: lung cancer : Reports: Other (See Below) Other Family History: kidney failure OBGYN: Reports: Endometriosis, Oncologic: Reports: Lung, Skin - Tobacco Use Smoking Status *Q: Former Smoker Years of Tobacco use: 30 Packs/Tins Daily: 1 Used Tobacco, but Quit: Yes Month/Year Tobacco Last Used: 2015 Second Hand Smoke Exposure: Yes - Caffeine Use Caffeine Use: Reports: None - Alcohol Use Days Per Week of Alcohol Use: 0 - Recreational Drug Use Recreational Drug Use: No Drug Use in Last 12 Months: No Review of Systems - Review of Systems Review Of Systems: See Below Constitutional: Reports: No Symptoms Eyes: Reports: No Symptoms Ears: Reports: No Symptoms Nose: Reports: No Symptoms Respiratory: Reports: No Symptoms Cardiovascular: Reports: No Symptoms GI/Abdominal: Reports: No Symptoms Musculoskeletal: Reports: Leg Pain, Other (see HPI) Neurological: Reports: No Symptoms ED EXAM, GENERAL - Physical Exam Exam: See Below Exam Limited By: No Limitations General Appearance: Alert, WD/WN, No Apparent Distress Eye Exam: Bilateral Eye: EOMI, PERRL Nose: Normal Inspection Throat/Mouth: Normal Inspection, Normal Teeth, Normal Gums, Normal Voice, No Airway Compromise Head: Atraumatic, Normocephalic Neck: Normal Inspection Respiratory/Chest: No Respiratory Distress, Lungs Clear, Normal Breath Sounds Cardiovascular: Normal Peripheral Pulses, Regular Rate, Rhythm, No Murmur Peripheral Pulses: 2+: Posterior Tibial (L), Posterior Tibial (R), Dorsalis Pedis (L), Dorsalis Pedis (R) GI/Abdominal: Normal Bowel Sounds, Soft, Non-Tender (Female) Exam: Deferred Rectal (Female) Exam: Deferred Extremities: Other (left leg is with surgical dressing CDI. Leg is swollen, medial thigh is swollen, painful and with erythema. medial knee with mild erythema and swelling. Calf is tender with palpation and wtih moderate amt of swelling noted. CMS is + distally. DP/PT pulses 2+) Neurological: Alert, Oriented, Normal Cognition Psychiatric: Normal Affect, Normal Mood Course - Vital Signs Last Recorded V/S: Last Vital Signs Temp 97.9 F 07/07/17 19:16 Pulse 94 07/07/17 19:16 Resp 16 07/07/17 19:16 BP 138/89 07/07/17 19:16 Pulse Ox 97 07/07/17 19:16 - Orders/Labs/Meds Orders: Active Orders 24 hr Category Date Time Status VL Duplex Lwr Ext Veins Ltd Lt [US] Stat Exams 07/07/17 20:29 Taken Labs: Laboratory Tests 07/07/17 07/07/17 Range/Units 20:45 20:45 WBC 7.11 (3.98-10.04) K/mm3 RBC 3.39 L (3.98-5.22) M/mm3 Hgb 8.7 L (11.2-15.7) gm/L Hct 28.2 L (34.1-44.9) % MCV 83.2 (79.4-94.8) fl MCH 25.7 (25.6-32.2) pg MCHC 30.9 L (32.2-35.5) g/dl RDW Std Deviation 54.5 H (36.4-46.3) fL Plt Count 308 (182-369) K/mm3 MPV 10.1 (9.4-12.3) fl Neut % (Auto) 50.8 (34.0-71.1) % Lymph % (Auto) 30.5 (19.3-51.7) % [place] % (Auto) 14.6 H (4.7-12.5) % Eos % (Auto) 2.8 (0.7-5.8) Baso % (Auto) 0.7 (0.1-1.2) % Neut # (Auto) 3.61 (1.56-6.13) K/mm3 Lymph # (Auto) 2.17 (1.18-3.74) K/mm3 [place] # (Auto) 1.04 H (0.24-0.36) K/mm3 Eos # (Auto) 0.20 (0.04-0.36) K/mm3 Baso # (Auto) 0.05 (0.01-0.08) K/mm3 Sodium 136 (136-145) mEq/L Potassium 4.1 (3.5-5.1) mEq/L Chloride 100 (98-107) mEq/L Carbon Dioxide 29 (21-32) mEq/L Anion Gap 11.1 (5-15) BUN 22 H (7-18) mg/dL Creatinine 0.6 (0.55-1.02) mg/dL Est Cr Clr Drug Dosing 104.30 mL/min Estimated GFR (MDRD) > 60 (>60) mL/min BUN/Creatinine Ratio 36.7 H (14-18) Glucose 107 H (74-106) mg/dL Calcium 8.4 L (8.5-10.1) mg/dL Reviewed labs: normal WBC, hgb 8.7., normal platelets. Lytes WNL. K+ was slightly low postoperatively--resolved now. - Radiology Interpretation Free Text/Narrative:: Venous doppler US ordered. Awaiting US report. Departure - Departure Time of Disposition: 23:16 Disposition: Home, Self-Care 01 Condition: Good Clinical Impression: S/P total knee arthroplasty Qualifiers: Laterality: left Qualified Code(s): Z96.652 - Presence of left artificial knee joint - Discharge Information Instructions: Total Knee Replacement, Care After, [id number] Referrals: Kvng Angel MD [Primary Care Provider] - Forms: ED Department Discharge Additional Instructions: Final ultrasound report tonight is without evidence of blood clot to your leg. CBC or blood count is normal, no infection. Electrolytes are also normal. Elevate left leg as much as possible Ice to knee 4 times daily, 20+ minutes at a time Wear gabriel hose/compression hose, on during day off during the night Continue with range of motion and exercises per Physical Therapy; continue with Physical Therapy Continue Aspirin 325mg twice daily Continue pain medications as instructed Call Dr. Angel's office on Sunday with report of symptoms and update on swelling - My Orders Last 24 Hours: My Active Orders 07/07/17 20:29 VL Duplex Lwr Ext Veins Ltd Lt [US] Stat - Assessment/Plan Last 24 Hours: My Active Orders 07/07/17 20:29 VL Duplex Lwr Ext Veins Ltd Lt [US] Stat
--- NOTE | 2017-07-09 08:18 | US ---
Left lower extremity deep venous ultrasound: Duplex and color flow imaging was obtained of the left common femoral, proximal greater saphenous, superficial femoral, popliteal, posterior tibial and peroneal veins. Right common femoral vein was also evaluated. Findings: Soft tissue edema is noted throughout the lower leg. Posterior tibial and peroneal veins were not seen well enough due to swelling to allow for compression but normal phasic flow and augmentation are seen within these 2 veins. Other veins show normal phasic flow, augmentation and compression. Impression: 1. Diffuse soft tissue edema. 2. Nothing identified to indicate deep venous thrombosis within the left lower extremity or right common femoral vein. Diagnostic code #2 Agree with preliminary report issued by [facility] ([facility] preliminary report dictated on 07/07/17, 11:53 PM Central Time)
== END 2017-07-07 23:30 | disposition home or self-care (01) ==
LOC: JD.ED 19:00
DX: Z96.652 Presence of left artificial knee joint (principal); I10 Essential (primary) hypertension; Z88.8 Allergy status to other drugs, medicaments and biological substances; Z79.899 Other long term (current) drug therapy; Z87.891 Personal history of nicotine dependence
CPT/HCPCS: 36415; 80048; 85025; 93971-26-LT; 93971-LT; 99284; 99284-25